=== PATIENT | male | born 1945 | race Caucasian/White ===

== ENCOUNTER → 2020-12-27 01:02 | Outpatient (CLI) | payer MEDICARE, SELFPAY ==
[2020-12-27 19:08] LABS: SARS-CoV-2 RNA PCR Positive
== END ==
PROVIDERS: PCP Internal Medicine; Visit Provider Internal Medicine Critical Care Medicine
DX: Z01.812 Encounter for preprocedural laboratory examination (principal); U07.1 COVID-19
CPT/HCPCS: C9803; U0003; U0005

== ENCOUNTER → 2021-01-17 03:01 | Outpatient (CLI) | payer MEDICARE, SELFPAY ==
[2021-01-17 18:08] LABS: SARS-CoV-2 RNA PCR Negative
== END ==
PROVIDERS: PCP Internal Medicine; Visit Provider Internal Medicine Critical Care Medicine
DX: Z01.812 Encounter for preprocedural laboratory examination (principal); Z20.822 Contact with and (suspected) exposure to COVID-19
CPT/HCPCS: C9803; U0003; U0005

== ENCOUNTER 2021-01-19 09:08 | Outpatient (CLI) | payer MEDICARE, SELFPAY ==
--- NOTE | 2021-02-03 16:26 | WPDSLEEPSTUD ---
Sleep Study Ordering Provider: Javad Willoughby DO Interpreting Physician: Delicia Marquez MD Sleep Study Type: Polysomnogram Height: 1.85 m Weight: 98.883 kg Body Mass Index: 28.8 Neck Circumference (inches): 17 [place]: 3 Reason for Sleep Study Waking up during the night, excessive daytime sleepiness 01/23/2002 CPAP titration with optimal pressure of 12 cm May 1999 with RDI 11.1, snoring and desaturation to 78%, BMI was 32.7 Sleep History Rodríguez Chan is a 75-year-old man who presents for evaluation due to waking during the night and having excessive daytime sleepiness. He rarely snores. Occasionally, his snoring is loud enough that others complain about it. He does not awaken at night with heartburn, belching or coughing. He occasionally awakens from sleep feeling short of breath. He rarely has trouble sleeping with a cold. He occasionally wakes up gasping for breath at night, occasionally has breathing problems at night observed by others. He does not sweat excessively at night or notices his heart pounding or beating irregularly at night. He rarely falls asleep during the day. He does not fall asleep involuntarily or while driving. He rarely has loss of muscle tone with strong emotion. He does not have daytime difficulties due to excessive sleepiness. He is retired. He does not feel paralyzed on waking or falling asleep. He does not have vivid dreamlike scenes upon awakening or falling asleep. He does not feel afraid to go to sleep. He denies having nightmares. He does not remember his dreams. He does not have racing thoughts. He does not feel sad or depressed. He does not have anxiety. He does not have muscular tension. He rarely notices parts of his body jerking. He does not kick at night. He does not have crawling or aching feelings in his legs and does not have any kind of leg pain at night. He does not have morning jaw pain. He does not grind his teeth during sleep. He rarely is bothered by pain during the day. He is not awakened by pain at night. He does not wake up feeling stiff in the morning with sore or achy muscles. He does not wake up with pain in the neck and spine. He has fatigue and sexual problems. Normal bedtime is 10:30-11 p.m., falling asleep within 5 minutes, waking twice during the night. He wakes up in the middle of the night, and watches television. He is able to return to sleep within a 1/2 hour. He wakes in the morning between 4 and 5:00 a.m.. His weekend schedule is the same. He takes naps in the afternoon or evening. A short nap may be refreshing. He is usually drowsy in the morning for 2 hours. He rarely wakes feeling refreshed. Habits: Quit tobacco years ago. No caffeine, alcohol or recreational drugs. [facility] Past Medical History Medical History (Updated 02/03/21 @ 19:47 by Delicia Marquez MD) Diastasis recti Essential hypertension Hemangioma Hypertriglyceridemia Insomnia JASON (obstructive sleep apnea) Type 2 diabetes mellitus without complication, without long-term current use of insulin Surgical History Surgical History (Updated 02/03/21 @ 19:47 by Delicia Marquez MD) History of back surgery x 3 History of repair of hiatal hernia Family History Family History (Updated 07/16/18 @ 13:53 by DOCTOR UNKNOWN) Sibling Family history of malignant neoplasm of breast in first degree relative Family history of lung cancer Mother Patient's mother is Father Patient's father is Other Diabetes mellitus Family history of cardiovascular disease Family history of elevated blood lipids Hypertension Social History Social History Smoking status: Former smoker Smoking end date: 10/28/95 Alcohol intake: current Gender identity (if verbalized by the patient): Male Medications Home Medications Medication Instructions Recorded Confirmed Type repaglinide 0.5 mg tablet 0.5 mg PO BID #180 t
[2021-02-03 20:38] VITALS: BMI 28.8
== END 2021-01-19 09:09 | disposition home or self-care (01) ==
LOC: ANHCSM 09:08
PROVIDERS: PCP Internal Medicine; Visit Provider Internal Medicine
DX: G47.33 Obstructive sleep apnea (adult) (pediatric) (principal)
CPT/HCPCS: 95810

== ENCOUNTER 2021-01-22 11:44 | Emergency (ER) | payer MEDICARE, SELFPAY ==
--- NOTE | ~2021-01-22 | XR_ITS ---
EXAMINATION: XR wrist RT min 3V INDICATION: Right wrist pain TECHNIQUE: Four views of the right wrist are obtained. COMPARISON: None available FINDINGS: There is a triangular heterotopic ossification projecting lateral to the styloid of the rad ius. Cartilaginous calcification is noted. Bone alignment is normal. There is mild soft tissue swelli ng of the wrist. 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 IMPRESSION: 1. Tripolar heterotopic ossification lateral to the styloid of the radius which could reflect avulsio n injury. Recommend correlation for tenderness at this site. Reviewed, dictated and finalized at location A. IMPRESSION: 1. Tripolar heterotopic ossification lateral to the styloid of the radius which could reflect avulsion injury. Recommend correlation for tenderness at this si te.
[2021-01-22 11:45] VITALS: BP 160/67; PULSE 92; RESP 17; TEMP 36.1; O2SAT 100
--- NOTE | 2021-01-22 12:50 | ED.UPPEXIN ---
HPI - Extremity Injury (Upper) General Chief Complaint: Extremity Injury, Upper Stated Complaint: right wrist injury Time Seen by Provider: 01/22/21 12:00 Source: patient Mode of arrival: ambulatory Limitations: no limitations History of Present Illness HPI narrative: This is a 75-year-old male that presents the emergency department for right wrist injury sustained 2 days ago. Reports he was doing laundry. Does not remember certain injury, but felt a pop in his wrist. Reports since he has had pain, especially on the radial side of the wrist. Worse with movement and relieved with rest. Denies decreased range of motion or numbness. Related Data Home Medications Medication Instructions Recorded Confirmed dapagliflozin 10 mg tablet 0.5 mg PO QAM tablet 12/14/19 12/15/20 apple cider vinegar 500 mg tablet 600 mg PO BID tablet 02/15/20 12/15/20 aspirin 81 mg tablet,delayed 81 mg PO DAILY 02/15/20 12/15/20 release cyanocobalamin (vitamin B-12) 1,000 mcg PO DAILY 02/15/20 12/15/20 1,000 mcg capsule multivitamin 1 tablet PO DAILY 02/15/20 12/15/20 insulin glargine 100 unit/mL 20 unit SUB-Q DAILY ml 02/16/20 12/15/20 subcutaneous solution fluticasone propionate 50 2 spray NASAL .prn ml 08/16/20 12/15/20 mcg/actuation nasal spray,suspension magnesium 250 mg tablet 500 mg PO DAILY tablet 08/16/20 12/15/20 semaglutide 0.5 mg SUB-Q WEEKLY ml 08/16/20 12/15/20 glipizide 10 mg tablet 10 mg PO DAILY tablet 12/15/20 12/15/20 Allergies Allergy/AdvReac Type Severity Reaction Status Date / Time pentazocine Allergy Unknown Hives Verified 08/16/20 07:28 Review of Systems Review of Systems: Narrative: CONSTITUTIONAL: Denies fever MUSCULOSKELETAL: Reports joint pain, and myalgia. NEUROLOGIC: Denies numbness, or weakness. All systems reviewed & are unremarkable except as noted in HPI and below PMFSH Past Medical History Medical History (Updated 01/22/21 @ 13:19 by Araseli Jimenez PA-C) Diastasis recti Essential hypertension Hemangioma Hypertriglyceridemia Insomnia Type 2 diabetes mellitus without complication, without long-term current use of insulin Surgical History Surgical History (Updated 08/16/20 @ 07:24 by Natividad Faith) History of repair of hiatal hernia Family History Family History (Updated 07/16/18 @ 13:53 by DOCTOR UNKNOWN) Sibling Family history of malignant neoplasm of breast in first degree relative Family history of lung cancer Mother Patient's mother is Father Patient's father is Other Diabetes mellitus Family history of cardiovascular disease Family history of elevated blood lipids Hypertension Social History Social History Smoking status: Former smoker Smoking end date: 10/28/95 Alcohol intake: current Gender identity (if verbalized by the patient): Male Exam Narrative: Exam Narrative: GENERAL: Well-appearing, well-nourished, and in no acute distress. HEAD: Normocephalic, atraumatic. EYES: EOMI. EXTREMITIES: Normal range of motion. No edema or obvious deformity. Pain with palpation of the radial side of the wrist. Normal radial pulses. Normal sensation SKIN: Warm, dry, no rash. NEURO: No focal deficits. Alert and oriented x3. PSYCH: Normal mood and affect Course Vital Signs Vital signs: Vital Signs Temperature 97 F L 01/22/21 11:45 Pulse Rate 92 01/22/21 11:45 Respiratory Rate 17 01/22/21 11:45 Blood Pressure 160/67 H 01/22/21 11:45 Pulse Oximetry 100 01/22/21 11:45 Temperature 97 F L 01/22/21 11:45 Pulse Rate 92 01/22/21 11:45 Respiratory Rate 17 01/22/21 11:45 Blood Pressure 160/67 H 01/22/21 11:45 Pulse Oximetry 100 01/22/21 11:45 Procedures Orthopedic Splinting/Casting Injury #1: Splinting/Casting Date: 01/22/21 Splinting/Casting Time: 13:17 Side: right Upper Extremity Injury Location: wrist Upper Extremity Immobilizer:
--- NOTE | 2021-01-22 12:53 | PC.NURSE ---
Educated patient on OCL and care, including checking for good PMS in fingers. He and his have no questions after splint placement.
== END 2021-01-22 13:24 | disposition home or self-care (01) ==
PROVIDERS: Emergency Provider Emergency Medicine; PCP Internal Medicine
DX: S52.501A Unspecified fracture of the lower end of right radius, initial encounter for closed fracture (principal); E11.9 Type 2 diabetes mellitus without complications; I10 Essential (primary) hypertension; E78.1 Pure hyperglyceridemia; M62.08 Separation of muscle (nontraumatic), other site; Z87.891 Personal history of nicotine dependence; Z79.4 Long term (current) use of insulin; Z79.82 Long term (current) use of aspirin; X50.9XXA Other and unspecified overexertion or strenuous movements or postures, initial encounter
CPT/HCPCS: 29125; 73110; 99284

== ENCOUNTER → 2021-12-07 07:08 | Outpatient (CLI) | payer MEDICARE, SELFPAY ==
[2021-12-07 13:01] LABS: SARS-CoV-2 RNA PCR Negative
== END ==
PROVIDERS: PCP Internal Medicine; Visit Provider Internal Medicine
DX: R05.9 Cough, unspecified (principal); Z20.822 Contact with and (suspected) exposure to COVID-19
CPT/HCPCS: C9803; U0003; U0005

== ENCOUNTER 2022-05-10 08:34 | Outpatient (CLI) | payer MEDICARE, SELFPAY ==
[2022-05-10 16:34] LABS: Basophils Absolute Auto 0.1 K/mm3 (0.0-0.1); Eosinophils Absolute Auto 0.3 K/mm3 (0-0.3); Eosinophils Percent Auto 2.5 % (0-4.4); Hematocrit 37.2 % (42.0-52.0); Hemoglobin 11.3 g/dL (14.0-18.0); Immature Granulocyte Absolute 0.03 K/mm3 (0.00-0.031); Immature Granulocyte Percent A 0.3 % (0-0.5); Immature Platelet Fraction Pct 9.6 % (0.9-11.2); Lymphocytes Absolute Auto 2.41 K/mm3 (0.9-3.2); Lymphocytes Percent Auto 21.9 % (18.3-44.2); Mean Corpuscular HGB Conc 30.4 g/dl (32-36); Mean Corpuscular Hemoglobin 23.3 pg (26-34); Mean Corpuscular Volume 76.9 fl (80-100); Mean Platelet Volume 12.6 fl (7.4-10.4); Monocytes Absolute Auto 0.9 K/mm3 (0.1-0.6); Monocytes Percent Auto 8.3 % (2.6-8.5); Neutrophils Absolute Auto 7.3 K/mm3 (1.3-6.7); Platelet Count Result 266 k/mm3 (150-375); Red Blood Count 4.84 M/mm3 (4.6-6.20); Red Cell Distribution Width 17.7 % (11.5-14.5)
[2022-05-10 16:41] LABS: Erythrocyte Sedimentation Rate 35 mm/hr (0-20)
== END 2022-05-10 08:35 | disposition home or self-care (01) ==
LOC: ANHGOSHLAB 08:36
PROVIDERS: PCP Internal Medicine; Visit Provider Internal Medicine
DX: R10.32 Left lower quadrant pain (principal)
CPT/HCPCS: 36415; 85025; 85055; 85652

== ENCOUNTER 2022-05-11 13:47 | Outpatient (CLI) | payer MEDICARE, SELFPAY ==
--- NOTE | ~2022-05-11 | CT_ITS ---
EXAMINATION: CT abdomen pelvis w con DATE: 05/11/2022 14:16 INDICATION: Left lower quadrant abdominal pain. Leukocytosis. TECHNIQUE: Computed tomography (CT) of the abdomen and pelvis was performed with 100 mL Omnipaque-300 intravenous contrast. Automated exposure control and iterative reconstruction technique were employe d. The dose-length product was 698.04 mGy-cm. COMPARISON: None FINDINGS: Mild discoid atelectasis at the lingula. Heart size is normal. No pericardial or pleural effusion. At herosclerotic coronary artery calcifications. A couple small hepatic and splenic calcifications consi stent with old granulomatous disease. Gallbladder, pancreas, bilateral adrenal glands and right kidne y are normal. A few small left renal cysts the largest measuring 1.5 cm. Small bowel and appendix are normal. Moderate diverticulosis along the descending and sigmoid colon. Focal mild wall thickening a s well as inflammatory stranding surrounding a diverticulum along the descending colon consistent wit h acute diverticulitis. Bladder is normal. Postoperative change of prior left inguinal hernia repair. No abscess or free intraperitoneal gas or fluid. No pathologically enlarged abdominal or pelvic lymp hadenopathy. Moderate lower lumbar spondylosis. IMPRESSION: 1. Radiographically uncomplicated diverticulitis. Reviewed, dictated and finalized at location B.
[2022-05-11 14:13] LABS: Estimated Glomerular Filt Rate > 60
== END 2022-05-11 13:48 | disposition home or self-care (01) ==
PROVIDERS: PCP Internal Medicine; Visit Provider Internal Medicine
DX: K57.32 Diverticulitis of large intestine without perforation or abscess without bleeding (principal)
CPT/HCPCS: 74177; Q9967

== ENCOUNTER 2022-05-18 09:46 | Emergency (ER) | payer MEDICARE, SELFPAY ==
[2022-05-18] VITALS (20 sets, daily range): BP systolic 72–126; BP diastolic 48–88; PULSE 66–81; RESP 16–17; TEMP 36.6; O2SAT 94–100
--- NOTE | ~2022-05-18 | CT_ITS ---
EXAMINATION: CT abdomen pelvis w con DATE: 05/18/2022 12:13 INDICATION: Abdominal pain. Recent episode of diverticulitis. TECHNIQUE: Computed tomography (CT) of the abdomen and pelvis was performed with 100 CC Omnipaque 300 intravenous contrast. Automated exposure control and iterative reconstruction technique were employe d. Exam dose: 684.98 mGy-cm total exam DLP. COMPARISON: 05/11/2022 CT abdomen pelvis FINDINGS: There is minimal atelectasis at the lung bases. Normal heart size. No pericardial or pleura l effusion. The gallbladder is distended. No gallbladder wall thickening or pericholecystic fluid or fat strandin g. No bile duct or pancreatic duct dilatation. No hepatic, splenic, pancreatic or adrenal space-occupying mass lesion. There are several left renal cysts, the largest approximately 1.6 cm. No urinary tract calculus or hydroureteronephrosis. The urinary bladder wall appears prominent but may be due to Complete evacuation of the urinary bladder. Mild to moderate prostate enlargement. Calcification of the abdominal aorta; there is calcification of the origins of the renal arteries. No abdominal aortic aneurysm. Calcification of the iliac and femoral arteries. No intraperitoneal or re troperitoneal or pelvic mass lesion or adenopathy or ascites is noted. Small fat-containing left inguinal hernia. There are fluid levels of the colon. Diverticulosis of the left colon. Resolution of the pericolic in flammatory changes at the lower descending colon since 05/11/2022.. IMPRESSION: Resolution of lower descending colon diverticulitis since 05/11/2022 There are fluid levels throughout the colon; no bowel obstruction Reviewed, dictated and finalized at Location [facility]. Reviewed, dictated and finalized at location B. IMPRESSION: Resolution of lower descending colon diverticulitis since 2 There are fluid levels throughout the colon; no bowel obstruction
--- NOTE | 2022-05-18 10:05 | ED.ABDPAIN ---
HPI - Abdominal Pain General Chief Complaint: Abdominal Pain Stated Complaint: known diverticulitis, left side pain Time Seen by Provider: 05/18/22 09:59 Source: patient Mode of arrival: ambulatory Limitations: no limitations History of Present Illness HPI narrative: This is a 77-year-old male that presents to the emergency department for left lower quadrant abdominal pain. Ongoing over the last week and a half. He was evaluated by his primary doctor and had an outpatient CT scan. This showed acute diverticulitis. He was started on ciprofloxacin and Flagyl. He has been taking these medications as prescribed for the last week. He has had some improvement in his pain, although pain is still present. He is also still having several episodes of diarrhea daily. Denies fever, vomiting, or hematochezia. Related Data Home Medications Medication Instructions Recorded Confirmed apple cider vinegar 500 mg tablet 600 mg PO BID 02/15/20 05/10/22 aspirin 81 mg tablet,delayed 81 mg PO DAILY 02/15/20 05/10/22 release (Adult Low Dose Aspirin) multivitamin (Daily Multi-Vitamin 1 tablet PO DAILY 02/15/20 05/10/22 tablet) insulin glargine 100 unit/mL 20 unit subcut DAILY 02/16/20 05/10/22 subcutaneous solution (Lantus U-100 Insulin) magnesium 250 mg tablet 500 mg PO DAILY 08/16/20 05/10/22 semaglutide 0.25 mg or 0.5 mg (2 0.5 mg subcut WEEKLY 08/16/20 05/10/22 mg/1.5 mL) subcutaneous pen injector (Ozempic) glipizide 10 mg tablet 10 mg PO DAILY 12/15/20 05/10/22 lysine 500 mg tablet (L-Lysine) 500 mg PO BID PRN 11/21/21 05/10/22 dapagliflozin 10 mg tablet 10 mg PO QAM 02/13/22 05/10/22 (Farxiga) metformin 1,000 mg tablet 1,000 mg PO BID 02/13/22 05/10/22 insulin degludec 200 unit/mL (3 20 unit subcut DAILY 05/18/22 mL) subcutaneous pen (Tresiba FlexTouch U-200 insulin) Allergies Allergy/AdvReac Type Severity Reaction Status Date / Time pentazocine Allergy Unknown Hives Verified 05/18/22 10:57 Review of Systems Review of Systems: CONSTITUTIONAL: Denies fever GASTROINTESTINAL: Reports abdominal pain and diarrhea. Denies nausea, vomiting GENITOURINARY: Denies dysuria All systems reviewed & are unremarkable except as noted in HPI and below PMFSH Past Medical History Medical History Chronic kidney disease due to diabetes mellitus Diabetes mellitus with insulin therapy Diastasis recti Essential hypertension Hemangioma Hypertriglyceridemia Insomnia JASON (obstructive sleep apnea) Type 2 diabetes mellitus without complication, without long-term current use of insulin Wrist fracture Surgical History Surgical History History of back surgery x 3 History of repair of hiatal hernia Family History Family History Sibling Family history of malignant neoplasm of breast in first degree relative Family history of lung cancer Mother Patient's mother is Father Patient's father is Other Diabetes mellitus Family history of cardiovascular disease Family history of elevated blood lipids Hypertension Social History Social History Smoking status: Former smoker Smoking end date: 10/28/95 Alcohol intake: current Gender identity (if verbalized by the patient): Male Exam Narrative: GENERAL: Well-appearing, well-nourished, and in no acute distress. HEAD: Normocephalic, atraumatic. EYES: EOMI. CHEST: Clear to auscultation. No respiratory distress. No wheezes rales or rhonchi HEART: Regular rate and rhythm. No murmur heard. Normal peripheral pulses. ABDOMEN: Soft, nondistended, normal active bowel sounds. Tender to palpation in the left lower quadrant, without guarding EXTREMITIES: Normal range of motion. No edema. SKIN: Warm, dry, no rash. N
[2022-05-18] MEDS: SODIUM CHLORIDE 0.9% IV 500 ML 999 ML IV CONT (10:58)
[2022-05-18 11:07] LABS: Basophils Absolute Auto 0.1 K/mm3 (0.0-0.1); Basophils Percent Auto 0.6 % (0.2-1.2); Eosinophils Absolute Auto 0.2 K/mm3 (0-0.3); Eosinophils Percent Auto 2.2 % (0-4.4); Hemoglobin 10.6 g/dL (14.0-18.0); Immature Granulocyte Absolute 0.05 K/mm3 (0.00-0.031); Immature Granulocyte Percent A 0.5 % (0-0.5); Lymphocytes Absolute Auto 2.18 K/mm3 (0.9-3.2); Lymphocytes Percent Auto 19.7 % (18.3-44.2); Mean Corpuscular HGB Conc 31.2 g/dl (32-36); Mean Corpuscular Hemoglobin 23.1 pg (26-34); Mean Corpuscular Volume 74.1 fl (80-100); Mean Platelet Volume 11.3 fl (7.4-10.4); Monocytes Absolute Auto 0.9 K/mm3 (0.1-0.6); Monocytes Percent Auto 8.1 % (2.6-8.5); Neutrophils Absolute Auto 7.6 K/mm3 (1.3-6.7); Neutrophils Percent Auto 68.9 % (45.5-73.1); Platelet Count Result 307 k/mm3 (150-375); Red Blood Count 4.59 M/mm3 (4.6-6.20); Red Cell Distribution Width 17.2 % (11.5-14.5); White Blood Count 11.1 K/mm3 (4.5-10.0)
[2022-05-18 11:23] LABS: Alanine Aminotransferase 27 U/L (6-50); Alkaline Phosphatase 74 U/L (38-126); Anion Gap 11 mmol/L (8-16); Aspartate Amino Transferase 35 U/L (17-59); Bilirubin,Total 0.4 mg/dL (0.2-1.3); Blood Urea Nitrogen 18 mg/dL (9-20); Calcium 9.2 mg/dL (8.4-10.2); Carbon Dioxide 19 mmol/L (22-30); Chloride 104 mmol/L (98-107); Estimated CRCL calculation 40 ml/min; Estimated Glomerular Filt Rate 45; Glucose 91 mg/dL (65-110); Lactic Acid Reflex 2.7 mmol/L (0.7-2.0); Lipase 311 U/L (23-300); Potassium 3.4 mmol/L (3.4-5.0); Sodium 134 mmol/L (137-145)
[2022-05-18] MEDS: SODIUM CHLORIDE 0.9% IV 1,000 ML 999 ML IV CONT (11:49)
--- NOTE | 2022-05-18 11:51 | PC.NURSE ---
pt unable to provide urine sample at this time. pt declining straight cath.
[2022-05-18 12:24] LABS: Appearance Urine Clear (Clear); Bilirubin Urine 1+ (Negative); Blood Urine Negative (Negative); Color Urine Yellow (Yellow); Glucose Urine UA 3+ mg/dL (Negative); Ketones Urine Trace mg/dL (Negative); Leukocyte Esterase Ur Trace LEU/UL (Negative); Nitrate Urine Negative (Negative); Protein Urine Negative (Negative); Specific Grav Ur >= 1.030 (1.001-1.035); Urobilinogen Urine 0.2 mg/dL (<2.0)
[2022-05-18 12:37] LABS: Mucus Urine Rare /lpf; RBC Urine 0-2 /hpf (0-2); Squamous Epithelial Cell Urine Rare /hpf (Few); WBC Urine 0-3 /hpf
[2022-05-18 12:39] LABS: SARS-CoV-2 RNA PCR Negative
[2022-05-18 12:48] LABS: Add Urine Microscopic? YES
[2022-05-18 13:53] LABS: Lactic Acid Reflex 2.5 mmol/L (0.7-2.0)
[2022-05-18 14:05] LABS: Reflex Lactic Acid Yes or No Add Lactic
== END 2022-05-18 14:35 | disposition home or self-care (01) ==
PROVIDERS: Physician Assistant; Emergency Provider General Practice; PCP Internal Medicine
DX: R10.32 Left lower quadrant pain (principal); K57.32 Diverticulitis of large intestine without perforation or abscess without bleeding; Z20.822 Contact with and (suspected) exposure to COVID-19; E11.22 Type 2 diabetes mellitus with diabetic chronic kidney disease; N18.9 Chronic kidney disease, unspecified; I12.9 Hypertensive chronic kidney disease with stage 1 through stage 4 chronic kidney disease, or unspecified chronic kidney disease; E78.1 Pure hyperglyceridemia; G47.33 Obstructive sleep apnea (adult) (pediatric); Z87.891 Personal history of nicotine dependence; Z79.4 Long term (current) use of insulin; Z79.84 Long term (current) use of oral hypoglycemic drugs; Z79.82 Long term (current) use of aspirin
CPT/HCPCS: 36415; 74177; 80053; 81001; 83605; 83690; 85025; 96361; 96365; 99284; C9803; J0131; J7030; J7040; Q9967; U0003; U0005

== ENCOUNTER 2022-06-21 07:12 | Outpatient (CLI) | payer MEDICARE, SELFPAY ==
[2022-06-21 08:17] LABS: Appearance Urine Clear (Clear); Bilirubin Urine Negative (Negative); Blood Urine Negative (Negative); Color Urine Yellow (Yellow); Glucose Urine UA 3+ mg/dL (Negative); Ketones Urine Negative (Negative); Leukocyte Esterase Ur Negative LEU/UL (NEGATIVE); Nitrate Urine Negative (Negative); Protein Urine Negative (Negative); Urobilinogen Urine 0.2 mg/dL (<2.0); pH Urine 5.5 (5.0-9.0)
[2022-06-21 08:28] LABS: RBC Urine 0-2 /hpf (0-2); Squamous Epithelial Cell Urine Rare /hpf (Few); WBC Urine 0-3 /hpf (0-3)
[2022-06-21 08:34] LABS: Add Urine Microscopic? YES
[2022-06-21 09:01] LABS: Basophils Absolute Auto 0.1 K/mm3 (0.0-0.1); Basophils Percent Auto 1.3 % (0.2-1.2); Eosinophils Absolute Auto 0.3 K/mm3 (0-0.3); Eosinophils Percent Auto 3.5 % (0-4.4); Hematocrit 38.2 % (42.0-52.0); Hemoglobin 11.8 g/dL (14.0-18.0); Immature Granulocyte Absolute 0.03 K/mm3 (0.00-0.031); Immature Granulocyte Percent A 0.4 % (0-0.5); Immature Platelet Fraction Pct 7.3 % (0.9-11.2); Lymphocytes Absolute Auto 2.85 K/mm3 (0.9-3.2); Lymphocytes Percent Auto 33.7 % (18.3-44.2); Mean Corpuscular HGB Conc 30.9 g/dl (32-36); Mean Corpuscular Hemoglobin 23.1 pg (26-34); Mean Corpuscular Volume 74.9 fl (80-100); Mean Platelet Volume 12.1 fl (7.4-10.4); Monocytes Absolute Auto 0.7 K/mm3 (0.1-0.6); Monocytes Percent Auto 8.7 % (2.6-8.5); Neutrophils Absolute Auto 4.4 K/mm3 (1.3-6.7); Neutrophils Percent Auto 52.4 % (45.5-73.1); Platelet Count Result 275 k/mm3 (150-375); Red Cell Distribution Width 17.6 % (11.5-14.5); White Blood Count 8.5 K/mm3 (4.5-10.0)
[2022-06-21 10:09] LABS: Iron 59 ug/dL (49-181)
[2022-06-21 10:25] LABS: Percent Iron Saturation 15 % (20-50)
[2022-06-21 10:33] LABS: Anisocytosis 1+ (NORMAL); Burr Cells 1+ (NORMAL); Ovalocytes 1+ (NORMAL); Platelet Estimate Adequate (Adequate)
== END 2022-06-21 07:13 | disposition home or self-care (01) ==
PROVIDERS: Nurse Practitioner; PCP Internal Medicine; Visit Provider Internal Medicine
DX: R10.32 Left lower quadrant pain (principal); D64.9 Anemia, unspecified
CPT/HCPCS: 36415; 81001; 82728; 83540; 83550; 85025; 85055

== ENCOUNTER 2022-07-04 01:10 | Day surgery (SDC) | payer MEDICARE, SELFPAY ==
[2022-06-27 11:08] VITALS: BMI 28.4
--- NOTE | 2022-07-03 16:25 | PM.HPGS ---
History of Present Illness History of Present Illness Consent: Risks, benefits, and alternatives have been discussed and questions answered. Patient agrees to proceed with procedure. Chief complaint: neoplasm screening Narrative: Rodríguez Chan is a 77 year old male referred for colon cancer screening. He has a history of having had polyps in the past. Several years ago he had bleeding duodenal and gastric ulcers. Review of Systems Review of Systems: All systems reviewed & are unremarkable except as noted in HPI and below PMFSH Past Medical History Medical History Chronic kidney disease due to diabetes mellitus Diabetes mellitus with insulin therapy Diastasis recti Essential hypertension Hemangioma Hypertriglyceridemia Insomnia JASON (obstructive sleep apnea) Type 2 diabetes mellitus without complication, without long-term current use of insulin Wrist fracture Surgical History Surgical History History of back surgery x 3 History of repair of hiatal hernia Family History Family History Sibling Family history of malignant neoplasm of breast in first degree relative Family history of lung cancer Mother Patient's mother is Father Patient's father is Other Diabetes mellitus Family history of cardiovascular disease Family history of elevated blood lipids Hypertension Social History Social History Smoking packs per day: 2 Smoking cigarettes per day: 40.0 Years smoked: 7 Smoking pack-years: 14.00 Smoking status: Former smoker Tobacco type: cigarettes Smoking end date: 10/28/95 Alcohol intake: current Living arrangements: with family Gender identity (if verbalized by the patient): Male Spiritual care concerns: No Meds Home Medications and Allergies Home Medications Medication Instructions Recorded Confirmed Type apple cider vinegar 500 mg tablet 600 mg PO BID 02/15/20 06/27/22 History aspirin 81 mg tablet,delayed 81 mg PO DAILY 02/15/20 06/27/22 History release (Adult Low Dose Aspirin) multivitamin (Daily Multi-Vitamin 1 tablet PO DAILY 02/15/20 06/27/22 History tablet) semaglutide 0.25 mg or 0.5 mg (2 0.5 mg subcut WEEKLY 08/16/20 06/27/22 History mg/1.5 mL) subcutaneous pen injector (OzempVoicebase) lysine 500 mg tablet (L-Lysine) 500 mg PO BID 11/21/21 06/27/22 History amitriptyline 25 mg tablet 25 mg PO DAILY #90 tabs 01/31/22 06/27/22 Rx atorvastatin 20 mg tablet 20 mg PO DAILY #90 tabs 01/31/22 06/27/22 Rx lisinopril 20 1 tablet PO DAILY #90 tabs 01/31/22 06/27/22 Rx mg-hydrochlorothiazide 12.5 mg tablet amlodipine 10 mg tablet 10 mg PO DAILY #90 tabs 02/01/22 06/27/22 Rx dapagliflozin 10 mg tablet 10 mg PO QAM 02/13/22 06/27/22 History (Jessica) metformin 1,000 mg tablet 1,000 mg PO BID 02/13/22 06/27/22 History Allergies Allergy/AdvReac Type Severity Reaction Status Date / Time pentazocine Allergy Unknown Hives Verified 07/04/22 07:46 Exam Resp: Auscultation: clear to auscultation bilaterally Cardio: Rate: regular rate Rhythm: regular rhythm GI: GI Palp: Yes Soft to palpation and No Tenderness to palpation present (GI) Assessment and Plan Assessment and plan (1) Screening for colon cancer: Code(s): Z12.11 - Encounter for screening for malignant neoplasm of colon Status: Acute Assessment and Plan: Colonoscopy with possible biopsy or polypectomy or cautery or injection of substances.
[2022-07-04 07:47] VITALS: BP 139/65; PULSE 81; RESP 18; TEMP 36.1; O2SAT 98; BMI 26.6
[2022-07-04] MEDS: LACTATED RINGERS 1,000 ML 150 ML IV CONT (08:04)
[2022-07-04 08:09] LABS: Glucose Point of Care 187 mg/dl (65-105)
--- NOTE | 2022-07-04 08:45 | WPDANESEPPF ---
Anes - Initial Pre Proc Eval Procedure: Operation Date: 07/04/22 09:00 Proposed Procedures p Screening Colonoscopy - William Garza MD Date/Time: 07/04/22 08:45 Surgeon: William Garza MD Pre Op Diagnosis: neoplasm screening Patient Data Age: 77 Gender: M Height: 1.83 m Weight: 89.1 kg Last Vital Signs Temp 97 F L 07/04/22 07:47 Pulse 81 07/04/22 07:47 Resp 18 07/04/22 07:47 BP 139/65 07/04/22 07:47 Pulse Ox 98 07/04/22 07:47 O2 Del Method Room Air 07/04/22 07:47 Allergies Allergy/AdvReac Type Severity Reaction Status Date / Time pentazocine Allergy Unknown Hives Verified 07/04/22 07:46 Home Medications Medication Instructions Recorded Confirmed Type apple cider vinegar 500 mg tablet 600 mg PO BID 02/15/20 06/27/22 History aspirin 81 mg tablet,delayed 81 mg PO DAILY 02/15/20 06/27/22 History release (Adult Low Dose Aspirin) multivitamin (Daily Multi-Vitamin 1 tablet PO DAILY 02/15/20 06/27/22 History tablet) semaglutide 0.25 mg or 0.5 mg (2 0.5 mg subcut WEEKLY 08/16/20 06/27/22 History mg/1.5 mL) subcutaneous pen injector (Ozempic) lysine 500 mg tablet (L-Lysine) 500 mg PO BID 11/21/21 06/27/22 History amitriptyline 25 mg tablet 25 mg PO DAILY #90 tabs 01/31/22 06/27/22 Rx atorvastatin 20 mg tablet 20 mg PO DAILY #90 tabs 01/31/22 06/27/22 Rx lisinopril 20 1 tablet PO DAILY #90 tabs 01/31/22 06/27/22 Rx mg-hydrochlorothiazide 12.5 mg tablet amlodipine 10 mg tablet 10 mg PO DAILY #90 tabs 02/01/22 06/27/22 Rx dapagliflozin 10 mg tablet 10 mg PO QAM 02/13/22 06/27/22 History (Farxiga) metformin 1,000 mg tablet 1,000 mg PO BID 02/13/22 06/27/22 History Laboratory Tests 07/04/22 08:03 POC Capillary Glucose 187 mg/dl H mg/dl (65-105) Patient hx anesthesia problems: none Family hx anesthesia problems: none Results Review: All pre-operative results and documents have been reviewed as part of the pre-operative evaluation. [facility] Past Medical History Medical History (Reviewed 05/18/22 @ 08:33 by Zoe Ventura [facility]) Chronic kidney disease due to diabetes mellitus Diabetes mellitus with insulin therapy Diastasis recti Essential hypertension Hemangioma Hypertriglyceridemia Insomnia JASON (obstructive sleep apnea) Type 2 diabetes mellitus without complication, without long-term current use of insulin Wrist fracture Surgical History Surgical History (Reviewed 05/23/22 @ 10:16 by Mine Quezada [facility]) History of back surgery x 3 History of repair of hiatal hernia Family History Family History (Reviewed 05/23/22 @ 10:16 by Mine Quezada [facility]) Sibling Family history of malignant neoplasm of breast in first degree relative Family history of lung cancer Mother Patient's mother is Father Patient's father is Other Diabetes mellitus Family history of cardiovascular disease Family history of elevated blood lipids Hypertension Social History Social History (Reviewed 05/23/22 @ 10:16 by Mine Quezada [facility]) Smoking packs per day: 2 Smoking cigarettes per day: 40.0 Years smoked: 7 Smoking pack-years: 14.00 Smoking status: Former smoker Tobacco type: cigarettes Smoking end date: 10/28/95 Alcohol intake: current Living arrangements: with family Gender identity (if verbalized by the patient): Male Spiritual care concerns: No Anes - Eval Final PreProcedure Day of Procedure 07/04/22 08:45 Patient weight: normal Heart: regular rate and rhythm Lungs: clear to auscultation Airway: Mallampati scale class II Neurological: alert and oriented Last oral intake: >/= 8 hours ASA classification: III Emergent: no Anesthetic plan: proceed Anesthesia type and monitoring: general GIVS and standard monitoring Results Review: All pre-operative results and documents have been reviewed as part of the pre-operative evaluation. Informed Consent: The patie
[2022-07-04 09:23] VITALS: BP 92/49; PULSE 56; RESP 14; O2SAT 98
[2022-07-04 09:33] VITALS: BP 94/52; PULSE 58; RESP 14; O2SAT 98
[2022-07-04 09:43] VITALS: BP 114/62; PULSE 62; RESP 14; O2SAT 98
== END 2022-07-04 09:56 | disposition home or self-care (01) ==
PROVIDERS: PCP Internal Medicine; Visit Provider Internal Medicine Gastroenterology
PROC: 0DJD8ZZ Inspection of Lower Intestinal Tract, Via Natural or Artificial Opening Endoscopic (ICD-10-PCS; CPT 45378; principal; 2022-07-04 09:00)
DX: Z12.11 Encounter for screening for malignant neoplasm of colon (principal); K63.5 Polyp of colon; K57.30 Diverticulosis of large intestine without perforation or abscess without bleeding; I12.9 Hypertensive chronic kidney disease with stage 1 through stage 4 chronic kidney disease, or unspecified chronic kidney disease; E11.22 Type 2 diabetes mellitus with diabetic chronic kidney disease; N18.9 Chronic kidney disease, unspecified; E78.1 Pure hyperglyceridemia; G47.33 Obstructive sleep apnea (adult) (pediatric); G47.00 Insomnia, unspecified; Z87.891 Personal history of nicotine dependence; Z79.4 Long term (current) use of insulin
CPT/HCPCS: 45380; 82948; 88305; J2704; J7120

== ENCOUNTER 2022-08-31 08:34 | Outpatient (CLI) | payer MEDICARE, SELFPAY ==
[2022-08-31 19:33] LABS: Anion Gap 13 mmol/L (8-16); Blood Urea Nitrogen 23 mg/dL (9-20); Calcium 9.1 mg/dL (8.4-10.2); Carbon Dioxide 20 mmol/L (22-30); Chloride 105 mmol/L (98-107); Estimated Glomerular Filt Rate > 60; Glucose 137 mg/dL (65-110); Potassium 3.7 mmol/L (3.4-5.0); Sodium 138 mmol/L (137-145)
== END 2022-08-31 08:35 | disposition home or self-care (01) ==
LOC: ANHGOSHLAB 08:37
PROVIDERS: PCP Internal Medicine; Visit Provider Internal Medicine
DX: E11.22 Type 2 diabetes mellitus with diabetic chronic kidney disease (principal)
CPT/HCPCS: 36415; 80048

== ENCOUNTER 2022-11-30 08:42 | Outpatient (CLI) | payer MEDICARE, SELFPAY ==
[2022-11-30 19:24] LABS: Basophils Absolute Auto 0.1 K/mm3 (0.0-0.1); Basophils Percent Auto 1.1 % (0.2-1.2); Eosinophils Absolute Auto 0.2 K/mm3 (0-0.3); Eosinophils Percent Auto 2.1 % (0-4.4); Hematocrit 37.2 % (42.0-52.0); Hemoglobin 11.4 g/dL (14.0-18.0); Immature Granulocyte Absolute 0.03 K/mm3 (0.00-0.031); Immature Granulocyte Percent A 0.3 % (0-0.5); Lymphocytes Absolute Auto 3.35 K/mm3 (0.9-3.2); Lymphocytes Percent Auto 28.7 % (18.3-44.2); Mean Corpuscular HGB Conc 30.6 g/dl (32-36); Mean Platelet Volume 11.6 fl (7.4-10.4); Monocytes Absolute Auto 0.8 K/mm3 (0.1-0.6); Monocytes Percent Auto 7.2 % (2.6-8.5); Neutrophils Absolute Auto 7.1 K/mm3 (1.3-6.7); Neutrophils Percent Auto 60.6 % (45.5-73.1); Platelet Count Result 288 k/mm3 (150-375); Red Blood Count 4.96 M/mm3 (4.6-6.20); Red Cell Distribution Width 16.3 % (11.5-14.5); White Blood Count 11.7 K/mm3 (4.5-10.0)
[2022-11-30 19:36] LABS: Hemoglobin A1C 7.5 % (<5.7)
[2022-11-30 19:45] LABS: Creatinine Urine 28.2 mg/dL
[2022-11-30 19:47] LABS: Alanine Aminotransferase 29 U/L (6-50); Albumin Level 4.5 g/dL (3.5-5.1); Alkaline Phosphatase 99 U/L (38-126); Anion Gap 8 mmol/L (8-16); Aspartate Amino Transferase 35 U/L (17-59); Bilirubin,Total 0.8 mg/dL (0.2-1.3); Blood Urea Nitrogen 18 mg/dL (9-20); Calcium 9.6 mg/dL (8.4-10.2); Carbon Dioxide 28 mmol/L (22-30); Chloride 100 mmol/L (98-107); Cholesterol 104 mg/dL (0-200); Estimated Glomerular Filt Rate > 60; Glucose 92 mg/dL (65-110); HDL Direct 28 mg/dL; Potassium 4.2 mmol/L (3.4-5.0); Sodium 136 mmol/L (137-145); Triglycerides 114 mg/dL (<150)
[2022-11-30 19:59] LABS: LDL Cholesterol Direct 48 mg/dL
[2022-11-30 20:13] LABS: Microalbumin Urine Random < 6.0 mg/L (0-16.7)
[2022-11-30 20:29] LABS: Ferritin 7.31 ng/mL (11.1-264)
== END 2022-11-30 08:43 | disposition home or self-care (01) ==
LOC: ANHGOSHLAB 08:44
PROVIDERS: PCP Internal Medicine; Visit Provider Internal Medicine
DX: D64.9 Anemia, unspecified (principal); E11.9 Type 2 diabetes mellitus without complications; Z79.4 Long term (current) use of insulin
CPT/HCPCS: 36415; 80053; 80061; 82043; 82728; 83036; 85025

== ENCOUNTER 2023-02-27 08:18 | Outpatient (CLI) | payer MEDICARE, SELFPAY ==
[2023-02-27 15:12] LABS: Basophils Absolute Auto 0.1 K/mm3 (0.0-0.1); Basophils Percent Auto 1.4 % (0.2-1.2); Eosinophils Absolute Auto 0.3 K/mm3 (0-0.3); Eosinophils Percent Auto 3.3 % (0-4.4); Hematocrit 40.7 % (42.0-52.0); Hemoglobin 12.7 g/dL (14.0-18.0); Immature Granulocyte Absolute 0.01 K/mm3 (0.00-0.031); Immature Granulocyte Percent A 0.1 % (0-0.5); Lymphocytes Absolute Auto 2.46 K/mm3 (0.9-3.2); Lymphocytes Percent Auto 30.3 % (18.3-44.2); Mean Corpuscular HGB Conc 31.2 g/dl (32-36); Mean Corpuscular Hemoglobin 24.9 pg (26-34); Mean Corpuscular Volume 79.8 fl (80-100); Mean Platelet Volume 12.4 fl (7.4-10.4); Monocytes Absolute Auto 0.7 K/mm3 (0.1-0.6); Neutrophils Absolute Auto 4.5 K/mm3 (1.3-6.7); Neutrophils Percent Auto 55.9 % (45.5-73.1); Platelet Count Result 254 k/mm3 (150-375); Red Cell Distribution Width 18.9 % (11.5-14.5); White Blood Count 8.1 K/mm3 (4.5-10.0)
[2023-02-27 15:19] LABS: Anion Gap 11 mmol/L (8-16); Blood Urea Nitrogen 19 mg/dL (9-20); Calcium 9.2 mg/dL (8.4-10.2); Carbon Dioxide 28 mmol/L (22-30); Chloride 99 mmol/L (98-107); Estimated Glomerular Filt Rate > 60; Glucose 177 mg/dL (65-110); Sodium 138 mmol/L (137-145)
== END 2023-02-27 08:19 | disposition home or self-care (01) ==
PROVIDERS: PCP Internal Medicine; Visit Provider Internal Medicine
DX: D64.9 Anemia, unspecified (principal); I10 Essential (primary) hypertension; E11.9 Type 2 diabetes mellitus without complications
CPT/HCPCS: 36415; 80048; 82728; 85025

== ENCOUNTER 2023-09-16 08:29 | Outpatient (CLI) | payer MEDICARE, SELFPAY ==
[2023-09-16 18:29] LABS: Alanine Aminotransferase 26 U/L (6-50); Albumin Level 4.2 g/dL (3.5-5.1); Alkaline Phosphatase 80 U/L (38-126); Anion Gap 12 mmol/L (8-16); Aspartate Amino Transferase 38 U/L (17-59); Bilirubin,Total 0.7 mg/dL (0.2-1.3); Blood Urea Nitrogen 26 mg/dL (9-20); Calcium 9.5 mg/dL (8.4-10.2); Carbon Dioxide 26 mmol/L (22-30); Chloride 101 mmol/L (98-107); Estimated Glomerular Filt Rate 58; Glucose 107 mg/dL (65-110); Potassium 4.4 mmol/L (3.4-5.0); Sodium 139 mmol/L (137-145)
[2023-09-16 20:39] LABS: Basophils Absolute Auto 0.1 K/mm3 (0.0-0.1); Basophils Percent Auto 1.6 % (0.2-1.2); Eosinophils Absolute Auto 0.3 K/mm3 (0-0.3); Eosinophils Percent Auto 3.9 % (0-4.4); Hematocrit 37.1 % (42.0-52.0); Hemoglobin 11.3 g/dL (14.0-18.0); Immature Granulocyte Absolute 0.02 K/mm3 (0.00-0.031); Immature Granulocyte Percent A 0.3 % (0-0.5); Lymphocytes Absolute Auto 2.35 K/mm3 (0.9-3.2); Lymphocytes Percent Auto 34.1 % (18.3-44.2); Mean Corpuscular HGB Conc 30.5 g/dl (32-36); Mean Corpuscular Hemoglobin 24.6 pg (26-34); Mean Corpuscular Volume 80.7 fl (80-100); Mean Platelet Volume 11.8 fl (7.4-10.4); Monocytes Absolute Auto 0.6 K/mm3 (0.1-0.6); Neutrophils Absolute Auto 3.5 K/mm3 (1.3-6.7); Neutrophils Percent Auto 51.1 % (45.5-73.1); Platelet Count Result 299 k/mm3 (150-375); Red Cell Distribution Width 14.1 % (11.5-14.5); White Blood Count 6.9 K/mm3 (4.5-10.0)
[2023-09-16 22:44] LABS: Hemoglobin A1C 7.4 % (<5.7)
== END 2023-09-16 08:30 | disposition home or self-care (01) ==
LOC: ANHGOSHLAB 08:31
PROVIDERS: PCP Internal Medicine; Visit Provider Internal Medicine
DX: E11.22 Type 2 diabetes mellitus with diabetic chronic kidney disease (principal); Z79.4 Long term (current) use of insulin; I10 Essential (primary) hypertension
CPT/HCPCS: 36415; 80053; 82728; 83036; 85025

== ENCOUNTER 2024-01-03 08:55 | Outpatient (CLI) | payer MEDICARE, SELFPAY ==
--- NOTE | ~2024-01-03 | NM_ITS ---
EXAMINATION: NM jas stress w perfusion DATE: 01/03/2024 10:56 INDICATION: Abnormal EKG TECHNIQUE: Rest images were obtained following intravenous administration of 9.7 mCi Tc99m tetrofosmi n (Myoview). The patient was infused intravenously with Lexiscan (Regadenoson). Then, 31.1 mCi Tc99m tetrofosmin (Myoview) was administered intravenously, and stress images were obtained, initially in t he supine position and with repeat post stress imaging obtained in the prone position. Data was recon structed into short axis and horizontal and vertical long axis SPECT images. Gated SPECT images were also obtained. COMPARISON: None. FINDINGS: There is likely artifactual mild decreased activity along portions of the inferior and late ral marc on the supine rest and stress imaging which normalizes with prone imaging. There is additio nal more subtle mild nonreversible decreased uptake at the apical septal and mid anteroseptal segment s which persists on the prone imaging suspicious for infarct. No reversible ischemia. There is normal left ventricular chamber size, wall motion and ejection fraction. Left ventricular ejection fractio n measures 68%. IMPRESSION: 1. Small region of subtle mild nonreversible decreased uptake at the apical septal and mid anterosept al segments consistent with infarct. No reversible ischemia. 2. Left ventricular ejection fraction measuring 68%. Reviewed, dictated and finalized at location A. [facility] IMPRESSION: 1. Small region of subtle mild nonreversible decreased uptake at the apical sep bryant and mid anteroseptal segments consistent with infarct. No reversible ischem ia. 2. Left ventricular ejection fraction measuring 68%.
--- NOTE | 2024-01-03 09:27 | EST_ITS ---
Patient Info Name: Dino Chan Age: 78 years : 1945 Gender: Male Ht: 71 in Wt: 194 lbs BSA: 2.11 m2 HR: 65 bpm BP: 144 / 61 mmHg Heart Rhythm: Sinus Rhythm Exam Date: 01/03/2024 9:50 AM Exam Location: Echo Lab Patient Status: Outpatient Admit Date: 01/03/2024 Staff Ordering Physician: Arlette Guerra Attending Provider: Arlette Guerra Exercise Technologist: Adalgisa Higgins CT Nurse: Mague Baxter APN Exam Type: CA stress jas w NM Study Info Indications R94.31 - Abnormal electrocardiogram ECG EKG A regadenoson stress test was performed. Summary 1. 1. Inconclusive lexiscan stress test for ischemic ST changes by ECG criteria due to baseline LBBB. 2. 2. Baseline hypertension. 3. 3. Nuclear scan to follow and will be reported separately. Please correlate with it. 4. 4. Patient informed of the above results. Protocol: Lexiscan Stress ECG Details Stage: REST Duration (min): 1 min : 3 sec HR (bpm): 64 SBP (mmHg): 144 DBP (mmHg): 61 Stage: REST Duration (min): 9 min : 43 sec HR (bpm): 66 SBP (mmHg): 144 DBP (mmHg): 61 Stage: STAGE 1 Duration (min): 0 min : 59 sec HR (bpm): 81 SBP (mmHg): 149 DBP (mmHg): 55 Stage: RECOVERY Duration (min): 1 min : 0 sec HR (bpm): 86 SBP (mmHg): 149 DBP (mmHg): 55 Stage: RECOVERY Duration (min): 2 min : 0 sec HR (bpm): 85 SBP (mmHg): 149 DBP (mmHg): 55 Stage: RECOVERY Duration (min): 3 min : 0 sec HR (bpm): 81 SBP (mmHg): 140 DBP (mmHg): 47 Stage: RECOVERY Duration (min): 3 min : 31 sec HR (bpm): 81 SBP (mmHg): 140 DBP (mmHg): 47 Rest HR: 66 bpm Peak HR: 88 bpm Rest Sys BP: 144 mmHg Peak Sys BP: 149 mmHg Max Pred HR: 141 bpm % Max Pred HR: 62 % Target HR: 120 bpm Max RPP: 13,112 bpm*mmHg Termination Reason: Completed protocol Cardiac Symptoms: Shortness of breath Total Time: 1 min : 0 sec Rest Tamayo BP: 61 mmHg Peak Tamayo BP: 55 mmHg Total Dose: 0.4 mg Resting ECG Sinus rhythm, first degree AV block, LBBB. Stress ECG No ST changes. Arrhythmias None. Report Signatures
== END 2024-01-03 08:56 | disposition home or self-care (01) ==
PROVIDERS: PCP Internal Medicine; Visit Provider Clinical Nurse Specialist
DX: R07.9 Chest pain, unspecified (principal); R06.02 Shortness of breath
CPT/HCPCS: 78452; 93017; A9502; J2785

== ENCOUNTER 2024-02-06 14:55 | Outpatient (CLI) | payer MEDICARE, SELFPAY ==
--- NOTE | 2024-02-06 15:38 | ECHO_ITS ---
Patient Info Name: Dino Chan Age: 78 years : 1945 Gender: Male Ht: 72 in Wt: 201 lbs BSA: 2.17 m2 HR: 69 bpm BP: 144 / 71 mmHg Heart Rhythm: Sinus Rhythm Technical Quality: Good Exam Date: 02/06/2024 3:48 PM Exam Location: Echo Lab Patient Status: Outpatient Admit Date: 02/06/2024 Staff Ordering Physician: Darron Louis DO [place] Office: Sacha Patton RDCS Attending Provider: Darron Louis DO Referring Physician: Heriberto BANDA; Exam Type: CA echo doppler color flow Study Info Indications - MCGUIRE Complete two-dimensional, color flow and Doppler transthoracic echocardiogram is performed. Summary 1. Complete two-dimensional, color flow and Doppler transthoracic echocardiogram is performed. 2. Left ventricular chamber dimension is normal. 3. Left ventricular systolic function is normal, estimated at 55-60%. 4. There is moderate concentric increased left ventricular wall thickness. 5. The left ventricular diastolic function is grade I diastolic dysfunction. 6. E/e' 11 is mildly elevated. 7. Left atrial chamber dimension is mildly enlarged. 8. There is mild mitral valve regurgitation. 9. No pulmonary hypertension, estimated pulmonary arterial systolic pressure is 15 mmHg. Left Ventricle E/e' 11 is mildly elevated. Left ventricular chamber dimension is normal. Left ventricular systolic function is normal, estimated at 55-60%. There is moderate concentric increased left ventricular wall thickness. The left ventricular diastolic function is grade I diastolic dysfunction. Right Ventricle Right ventricular systolic function is normal and with normal TAPSE 2.8 cm. Right ventricular chamber dimension is normal. Left Atria Left atrial chamber dimension is mildly enlarged. Right Atria Right atrial chamber dimension is normal. Aortic Valve The aortic valve is trileaflet. There is no aortic valve stenosis. There is no aortic valve regurgitation. Pulmonic Valve There is no pulmonic regurgitation. Mitral Valve There is no mitral valve stenosis. There is mild mitral valve regurgitation. Tricuspid Valve There is no tricuspid valve regurgitation. No pulmonary hypertension, estimated pulmonary arterial systolic pressure is 15 mmHg. Pericardium/Pleural There is no pericardial effusion. Inferior Vena Cava Normal inferior vena cava with >50% collapse upon inspiration consistent with normal right atrial pressure, 5 mmHg. Aorta The aortic root size at the sinus of Valsalva is normal. Left Ventricular Outflow Tract Name Value Normal LVOT 2D LVOT Diameter 2.1 cm LVOT Doppler LVOT Peak Gradient 4 mmHg LVOT Mean Gradient 2 mmHg LVOT VTI 23 cm LVOT VTI/AV VTI Ratio 1.0 LVOT Stroke Volume 82 ml LVOT CO 5.4 l/min LVOT CI 2.5 l/min/m2 Pulmonic Valve Name Value Normal RVOT Doppler
== END 2024-02-06 14:56 | disposition home or self-care (01) ==
LOC: ANHCARD 14:58
PROVIDERS: PCP Internal Medicine; Visit Provider Internal Medicine Cardiovascular Disease
DX: R06.09 Other forms of dyspnea (principal)
CPT/HCPCS: 93306

== ENCOUNTER 2024-03-17 08:15 | Outpatient (CLI) | payer MEDICARE, SELFPAY ==
[2024-03-17 18:41] LABS: Basophils Absolute Auto 0.1 K/mm3 (0.0-0.1); Basophils Percent Auto 1.4 % (0.2-1.2); Eosinophils Absolute Auto 0.2 K/mm3 (0-0.3); Eosinophils Percent Auto 2.6 % (0-4.4); Hematocrit 38.8 % (42.0-52.0); Immature Granulocyte Absolute 0.01 K/mm3 (0.00-0.031); Immature Granulocyte Percent A 0.1 % (0-0.5); Lymphocytes Absolute Auto 2.56 K/mm3 (0.9-3.2); Mean Corpuscular HGB Conc 30.9 g/dl (32-36); Mean Corpuscular Hemoglobin 25.2 pg (26-34); Mean Corpuscular Volume 81.5 fl (80-100); Mean Platelet Volume 12.1 fl (7.4-10.4); Monocytes Absolute Auto 0.8 K/mm3 (0.1-0.6); Monocytes Percent Auto 9.5 % (2.6-8.5); Neutrophils Absolute Auto 4.8 K/mm3 (1.3-6.7); Neutrophils Percent Auto 56.4 % (45.5-73.1); Platelet Count Result 262 k/mm3 (150-375); Red Blood Count 4.76 M/mm3 (4.6-6.20); Red Cell Distribution Width 16.8 % (11.5-14.5); White Blood Count 8.5 K/mm3 (4.5-10.0)
[2024-03-17 19:01] LABS: Alanine Aminotransferase 25 U/L (6-50); Albumin Level 4.7 g/dL (3.5-5.1); Alkaline Phosphatase 94 U/L (38-126); Anion Gap 11 mmol/L (4-12); Aspartate Amino Transferase 43 U/L (17-59); Bilirubin,Total 0.9 mg/dL (0.2-1.3); Blood Urea Nitrogen 23 mg/dL (9-20); Calcium 9.6 mg/dL (8.4-10.2); Carbon Dioxide 26 mmol/L (22-30); Chloride 103 mmol/L (98-107); Cholesterol 105 mg/dL (0-200); Estimated Glomerular Filt Rate 53; Glucose 149 mg/dL (65-110); HDL Direct 34 mg/dL; Potassium 4.3 mmol/L (3.4-5.0); Sodium 140 mmol/L (137-145); Triglycerides 119 mg/dL (<150)
[2024-03-17 19:12] LABS: LDL Cholesterol Direct 53 mg/dL
[2024-03-17 20:38] LABS: Hemoglobin A1C 7.5 % (<5.7)
[2024-03-20 12:29] LABS: Apolipoprotein B 57 mg/dL
== END 2024-03-17 08:16 | disposition home or self-care (01) ==
PROVIDERS: PCP Internal Medicine; Visit Provider Internal Medicine
DX: E11.22 Type 2 diabetes mellitus with diabetic chronic kidney disease (principal); I10 Essential (primary) hypertension; E78.5 Hyperlipidemia, unspecified; I51.89 Other ill-defined heart diseases
CPT/HCPCS: 36415; 80053; 80061; 82172; 83036; 85025

== ENCOUNTER 2024-08-12 11:32 | Outpatient (CLI) | payer MEDICARE, SELFPAY ==
[2024-08-12 17:03] LABS: Basophils Absolute Auto 0.1 K/mm3 (0.0-0.1); Basophils Percent Auto 1.5 % (0.2-1.2); Eosinophils Absolute Auto 0.3 K/mm3 (0-0.3); Eosinophils Percent Auto 3.7 % (0-4.4); Hematocrit 42.2 % (42.0-52.0); Hemoglobin 13.3 g/dL (14.0-18.0); Immature Granulocyte Absolute 0.02 K/mm3 (0.00-0.031); Immature Granulocyte Percent A 0.3 % (0-0.5); Lymphocytes Absolute Auto 2.22 K/mm3 (0.9-3.2); Lymphocytes Percent Auto 30.3 % (18.3-44.2); Mean Corpuscular HGB Conc 31.5 g/dl (32-36); Mean Corpuscular Hemoglobin 25.7 pg (26-34); Mean Corpuscular Volume 81.6 fl (80-100); Mean Platelet Volume 11.6 fl (7.4-10.4); Monocytes Absolute Auto 0.7 K/mm3 (0.1-0.6); Monocytes Percent Auto 9.5 % (2.6-8.5); Neutrophils Percent Auto 54.7 % (45.5-73.1); Platelet Count Result 258 k/mm3 (150-375); Red Blood Count 5.17 M/mm3 (4.6-6.20); Red Cell Distribution Width 14.6 % (11.5-14.5); White Blood Count 7.3 K/mm3 (4.5-10.0)
[2024-08-12 17:21] LABS: Alanine Aminotransferase 24 U/L (6-50); Albumin Level 4.2 g/dL (3.5-5.1); Alkaline Phosphatase 86 U/L (38-126); Anion Gap 10 mmol/L (4-12); Aspartate Amino Transferase 42 U/L (17-59); Bilirubin,Total 0.7 mg/dL (0.2-1.3); Blood Urea Nitrogen 15 mg/dL (9-20); Calcium 9.3 mg/dL (8.4-10.2); Carbon Dioxide 27 mmol/L (22-30); Chloride 103 mmol/L (98-107); Estimated Glomerular Filt Rate > 60; Glucose 177 mg/dL (65-110); Potassium 3.9 mmol/L (3.4-5.0); Sodium 140 mmol/L (137-145)
[2024-08-13 09:42] LABS: Hemoglobin A1C 8.2 % (<5.7)
== END 2024-08-12 11:33 | disposition home or self-care (01) ==
LOC: ANHGOSHLAB 11:34
PROVIDERS: PCP Internal Medicine; Visit Provider Clinical Nurse Specialist
DX: D18.01 Hemangioma of skin and subcutaneous tissue (principal); R19.7 Diarrhea, unspecified; E11.9 Type 2 diabetes mellitus without complications; Z79.4 Long term (current) use of insulin
CPT/HCPCS: 36415; 80053; 83036; 85025

== ENCOUNTER 2024-08-12 11:46 | Outpatient (CLI) | payer MEDICARE, SELFPAY ==
--- NOTE | ~2024-08-12 | XR_ITS ---
Clinical Indication: Shortness of breath PA and lateral views of the chest: Comparison: 06/18/2019 Findings: The lungs are clear, without evidence of focal consolidation or pleural effusion. Cardiome diastinal silhouette is within normal limits. Bones and soft tissues are unremarkable. Impression: Normal chest. Reviewed, dictated and finalized at location . Impression: Normal chest.
== END 2024-08-12 11:47 | disposition home or self-care (01) ==
PROVIDERS: PCP Internal Medicine; Visit Provider Clinical Nurse Specialist
DX: R06.02 Shortness of breath (principal)
CPT/HCPCS: 71046

== ENCOUNTER 2024-08-14 08:25 | Outpatient (CLI) | payer MEDICARE, SELFPAY ==
[2024-08-14 10:05] LABS: Toxigenic C. Diff NEGATIVE (NEGATIVE)
== END 2024-08-14 08:26 | disposition home or self-care (01) ==
PROVIDERS: PCP Internal Medicine; Visit Provider Clinical Nurse Specialist
DX: R19.7 Diarrhea, unspecified (principal)
CPT/HCPCS: 87045; 87427; 87449; 87493

== ENCOUNTER 2024-08-17 10:44 | Outpatient (CLI) | payer MEDICARE, SELFPAY ==
[2024-08-17 16:14] LABS: Add Urine Microscopic? NO; Appearance Urine Clear (Clear); Bilirubin Urine Negative (Negative); Blood Urine Negative (Negative); Color Urine Yellow (Yellow); Glucose Urine UA 3+ mg/dL (Negative); Ketones Urine Negative (Negative); Leukocyte Esterase Ur Negative LEU/UL (Negative); Nitrate Urine Negative (Negative); Protein Urine Negative (Negative); Specific Grav Ur 1.021 (1.001-1.035); Urobilinogen Urine 0.2 mg/dL (<2.0)
[2024-08-17 16:27] LABS: Creatine Kinase 72 U/L (55-170)
[2024-08-17 17:09] LABS: Hepatitis C Virus Antibody Negative (Negative)
[2024-08-17 17:14] LABS: Erythrocyte Sedimentation Rate 16 mm/hr (0-20)
== END 2024-08-17 10:45 | disposition home or self-care (01) ==
LOC: ANHGOSHLAB 10:45
PROVIDERS: PCP Internal Medicine; Visit Provider Internal Medicine
DX: R19.7 Diarrhea, unspecified (principal); R53.81 Other malaise; R53.83 Other fatigue; Z11.59 Encounter for screening for other viral diseases; E11.9 Type 2 diabetes mellitus without complications; Z79.4 Long term (current) use of insulin; M79.10 Myalgia, unspecified site
CPT/HCPCS: 36415; 81003; 82550; 84443; 85652; 86803

== ENCOUNTER 2025-01-02 10:34 | Emergency (ER) | payer MEDICARE, SELFPAY ==
--- NOTE | ~2025-01-02 | XR_ITS ---
EXAMINATION: XR elbow RT 2V DATE: 01/02/2025 11:09 INDICATION: Right elbow pain. TECHNIQUE: 2 views of right elbow were obtained. COMPARISON: None. FINDINGS: Alignment is normal. No fracture. There is mild elbow joint osteoarthritis. There is a larg e elbow joint effusion. IMPRESSION: 1. Mild elbow joint osteoarthritis. 2. Large elbow joint effusion. Reviewed, dictated and finalized at location A. 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
[2025-01-02 10:44] VITALS: BP 132/61; PULSE 69; RESP 16; TEMP 36.5; O2SAT 97
--- NOTE | 2025-01-02 10:44 | ED_ITS ---
HPI - General Adult General Chief complaint: Extremity Problem,Nontraumatic Stated complaint: right arm after blood draw painful Time Seen by Provider: 01/02/25 10:46 Source: patient, RN notes reviewed and old records reviewed Mode of arrival: ambulatory Limitations: no limitations History of Present Illness HPI narrative: 79-year-old male presents to the [facility] with complaints of generalized right elbow pain. Patient reports been hernia couple of days. States that he did have blood drawn on the 31 of December in [place]. Has a small bruise to the antecubital area. Pain is more lateral and posterior. States he denies any injury. Did carry cases of water yesterday. Has taken Tylenol. Decreased range of motion. Treatments prior to arrival: other (Tylenol) Related Data Home Medications ?Medication ?Instructions ?Recorded ?Confirmed ?Last Taken ?Type aspirin 81 mg tablet,delayed 81 mg PO DAILY 02/15/20 01/02/25 Unknown History release (Adult Low Dose Aspirin) multivitamin (Daily Multi-Vitamin 1 tablet PO DAILY 02/15/20 01/02/25 Unknown History tablet) semaglutide 0.25 mg or 0.5 mg (2 0.5 mg subcut WEEKLY 08/16/20 01/02/25 Unknown History mg/1.5 mL) subcutaneous pen injector (Ozempic) dapagliflozin propanediol 10 mg 10 mg PO QAM 02/13/22 01/02/25 Unknown History tablet (Farxiga) insulin degludec 100 unit/mL (3 20 unit subcut QHS 03/12/23 01/02/25 Unknown History mL) subcutaneous pen (Tresiba FlexTouch U-100 insulin) glipizide 10 mg tablet, extended 10 mg PO DAILY 01/02/25 01/02/25 Unknown History release 24 hr Allergies Allergy/AdvReac Type Severity Reaction Status Date / Time pentazocine Allergy Unknown Hives Verified 01/02/25 11:09 Review of Systems Review of Systems: All systems reviewed & are unremarkable except as noted in HPI and below Constitutional: Constitutional: Reports no additional constitutional complaints ENT: Reports system reviewed and no additional complaints, except as documented Cardiovascular: Cardiovascular: Reports no additional cardiovascular complaints, Denies chest pain and Denies dyspnea Respiratory: Respiratory: Reports no additional respiratory complaints, Denies chest congestion, Denies cough and Denies dyspnea Musculoskeletal: Musculoskeletal: Reports as per HPI Integumentary/Breasts: Skin/Breast: Reports system reviewed and no additional complaints, except as docu PMFSH Past Medical History Medical History (HFpEF) heart failure with preserved ejection fraction Malignant melanoma Type 2 diabetes mellitus with chronic kidney disease, with long-term current use of insulin History of diverticulitis Chronic kidney disease due to diabetes mellitus Diabetes mellitus with insulin therapy Wrist fracture JASON (obstructive sleep apnea) Diastasis recti Type 2 diabetes mellitus without complication, without long-term current use of insulin Insomnia Hypertriglyceridemia Essential hypertension Hemangioma Surgical History Surgical History History of back surgery x 3 History of repair of hiatal hernia Family History Family History Sibling Family history of malignant neoplasm of breast in first degree relative Family history of lung cancer Mother Patient's mother is Father Patient's father is Other Diabetes mellitus Family history of cardiovascular disease Family history of elevated blood lipids Hypertension Social History Social History Smoking packs per day: 2 Smoking cigarettes per day: 40.0 Years smoked: 7 Smoking pack-years: 14.00 Smoking status: Former smoker Tobacco type: cigarettes Smoking end date: 10/28/95 Alcohol intake: current Substance use: never Do You Feel Safe in your Home?: No Lack of Transportation: No Lack of Food: Never True Current Housing: I Have Housing Concerned About Future Housing: No Difficulty Paying Gas/Electric Bills: No Difficulty Paying for Meds: No Currently Unemployed: No Education: Associate Degree Difficulty w/ Childcare or Family Care: No Living arrangements: with family Gender identity (if verbalized by the patient): Male Spiritual care concerns: No Comments At the time of my signature, I reviewed and agree with the nursing past medical, surgical, social, and family history. There is no relevant family history pertinent to the patient complaint. Exam Const: General: cooperative, healthy appearing, comfortable, no acute distress, well developed, alert and well nourished Nutritional Appearance: well nourished Orientation/consciousness: patient oriented x3 Limitations: no limitations HENMT: Head: normal to inspection Eyes: General: appearance normal, both eyes and all related structures Alignment and Position: alignment normal Neck: Neck: normal visual inspection, full ROM, no lymphadenopathy and no meningeal signs Chest: Chest palpation & inspection: normal inspection of the chest Resp: Effort & Inspection: normal respiratory effort and able to speak in complete sentences Cardio: Rate: regular rate Skin: General skin exam: normal color and no rashes or lesions noted Neuro: General: patient oriented x3, gait normal, moves all extremities and no meningeal signs Cognition (Neuro): normal cognition Speech: normal speech Gait exam (Neuro): Normal gait present Extrem: General: normal to inspection, full ROM, capillary refill normal and normal gait Right upper extremity: elbow/forearm tenderness, swelling, abnormal ROM (Unable to completely extend) pain with active ROM during and pain with passive ROM during and distal pulses intact; no unusual warmth, no abrasions, no ecchymosis, no crepitus, no foreign bodies, no penetrating wound and no deformity Psych: Appearance: grossly normal and well kempt Mental Status: mental status grossly normal Speech and movement: Normal speech and movement present and Clear speech present Affect: normal affect Attitude: cooperative Course Course Level of Care: Express Care Visit Vital Signs Vital signs: Vital Signs Temperature 97.7 F 01/02/25 10:44 Pulse Rate 69 01/02/25 10:44 Respiratory Rate 16 01/02/25 10:44 Blood Pressure 132/61 01/02/25 10:44 Pulse Oximetry 97 01/02/25 10:44 Oxygen Delivery Room Air 01/02/25 10:44 Temperature 97.7 F 01/02/25 10:44 Pulse Rate 69 01/02/25 10:44 Respiratory Rate 16 01/02/25 10:44 Blood Pressure 132/61 01/02/25 10:44 Pulse Oximetry 97 01/02/25 10:44 Oxygen Delivery Room Air 01/02/25 10:44 Reviewed Medical Decision Making MDM Narrative Medical decision making narrative: Patient sitting comfortably in exam room. Nontoxic, vitals stable. Patient in no acute distress Patient presents for right elbow pain. Elbow x-ray shows osteoarthritis, effusion. No significant erythema, redness, increased warmth. Patient is appropriate for outpatient treatment with close follow-up Discharge instructions reviewed with patient, as well as provided in writing per nursing staff. The instructions also include specific and strict return/GO TO THE ER as well as f/u information. All questions have been answered, and the patient deny any further questions with discharge and discharge plan. Some parts of this dictation were generated by voice recognition software and may contain typographical and/or grammatical inaccuracies. Differential Diagnosis Differential Diagnosis: Phlebitis, osteoarthritis, tendinitis, olecranon bursitis Medical Records Medical records reviewed: Yes I reviewed the external patient's medical records. Vital Signs Vital Signs: Vital Signs Temperature 97.7 F 01/02/25 10:44 Pulse Rate 69 01/02/25 10:44 Respiratory Rate 16 01/02/25 10:44 Blood Pressure 132/61 01/02/25 10:44 Pulse Oximetry 97 01/02/25 10:44 Oxygen Delivery Room Air 01/02/25 10:44 Temperature 97.7 F 01/02/25 10:44 Pulse Rate 69 01/02/25 10:44 Respiratory Rate 16 01/02/25 10:44 Blood Pressure 132/61 01/02/25 10:44 Pulse Oximetry 97 01/02/25 10:44 Oxygen Delivery Room Air 01/02/25 10:44 Reviewed Lab Data Lab results reviewed: Yes I reviewed the patient's lab results. Labs: Reviewed Imaging Data Radiologist's impression: EXAMINATION: XR elbow RT 2V DATE: 01/02/2025 11:09 INDICATION: Right elbow pain. TECHNIQUE: 2 views of right elbow were obtained. COMPARISON: None. FINDINGS: Alignment is normal. No fracture. There is mild elbow joint osteoarthritis. There is a large elbow joint effusion. IMPRESSION: 1. Mild elbow joint osteoarthritis. 2. Large elbow joint effusion. Critical Care Time Critical Care Time Critical Care Time: No Discharge Plan Discharge Clinical Impression: Effusion of elbow joint, right, Osteoarthritis Patient Disposition: Home, Self-Care Condition: Stable Instructions: Antibiotic Form, Elbow Bursitis (ED), Osteoarthritis (DC) Additional Instructions: Rest, ice and elevate every 2-3 hours for 15-20 minutes while awake. Take Motrin alternating with Tylenol as needed for pain Wear the Nguyễn wrap for comfort Follow-up with primary care provider this week For new or worsening symptoms please go directly to the emergency room Patient Language: [place] Arabian Prescriptions: No Action glipizide 10 mg tablet extended release 24hr 10 mg PO DAILY insulin degludec [Tresiba FlexTouch U-100] 100 unit/mL (3 mL) insulin pen 20 unit subcut QHS aspirin [Adult Low Dose Aspirin] 81 mg tablet,delayed release (DR/EC) 81 mg PO DAILY multivitamin [Daily Multi-Vitamin] Tablet 1 tablet PO DAILY Ozempic 0.25 mg or 0.5 mg(2 mg/1.5 mL) pen injector 0.5 mg SUB-Q WEEKLY Farxiga 10 mg tablet 10 mg PO QAM atorvastatin 20 mg tablet 20 mg PO DAILY Qty: 90 1RF lisinopril-hydrochlorothiazide 20-12.5 mg tablet See Rx Instructions .ROUTE .COMPLEX Qty: 90 3RF Dose Instruction: TAKE 1 TABLET BY MOUTH EVERY DAY Rx Instructions: TAKE 1 TABLET BY MOUTH EVERY DAY fluticasone propionate 50 mcg/actuation spray,suspension See Rx Instructions .ROUTE .COMPLEX Qty: 48 0RF Dose Instruction: 1 SPRAY INTRANASALLY EVERY 12 HOURS ADMINISTER INTO EACH NOSTRIL Rx Instructions: 1 SPRAY INTRANASALLY EVERY 12 HOURS ADMINISTER INTO EACH NOSTRIL amlodipine 10 mg tablet See Rx Instructions .ROUTE .COMPLEX Qty: 90 1RF Dose Instruction: TAKE 1 TABLET BY MOUTH ONCE DAILY Rx Instructions: TAKE 1 TABLET BY MOUTH ONCE DAILY Follow-up/Referrals: Javad Willoughby DO [Primary Care Provider] - 1 Week (express care follow up ) Time of Disposition: 11:30
== END 2025-01-02 11:38 | disposition home or self-care (01) ==
PROVIDERS: Emergency Provider Nurse Practitioner; PCP Internal Medicine
DX: M25.421 Effusion, right elbow (principal); M19.021 Primary osteoarthritis, right elbow; E11.22 Type 2 diabetes mellitus with diabetic chronic kidney disease; I12.9 Hypertensive chronic kidney disease with stage 1 through stage 4 chronic kidney disease, or unspecified chronic kidney disease; N18.9 Chronic kidney disease, unspecified; Z79.4 Long term (current) use of insulin; Z79.899 Other long term (current) drug therapy; Z87.891 Personal history of nicotine dependence
CPT/HCPCS: 73070; 99213; G0463

== ENCOUNTER 2025-01-31 08:08 | Emergency (ER) | payer MEDICARE, SELFPAY ==
[2025-01-31] VITALS (20 sets, daily range): BP systolic 105–144; BP diastolic 43–66; PULSE 30–70; RESP 12–22; TEMP 36.4; O2SAT 96–100
--- NOTE | ~2025-01-31 | XR_ITS ---
XR chest 2V Ordering provider: Delmer Henderson MD History: 79 years Male with . cp . Comparison: August 12, 2024 FINDINGS: MEDIASTINUM: The cardiac silhouette is not enlarged. Congestive zay. LUNGS: No pneumothorax. Opacification in the left lung base is seen with minimal left pleural effusio n. OTHER: No free air under the diaphragm. Degenerative changes of the spine. IMPRESSION: Left basilar atelectasis versus pneumonia with minimal left pleural effusion Reviewed, dictated and finalized at location A.
--- NOTE | 2025-01-31 08:13 | ECG_ITS ---
Test Date: 2025-01-31 08:17:29 Measurements Intervals [place] Rate: 33 P: 0 IL: 0 QRS: -12 QRSD: 158 T: 134 QT: 507 QTc: 380 Interpretive Statements SINUS RHYTHM WITH SLOW VENTRICULAR RESPONSE WITH SECOND DEGREE AV BLOCK, TYPE II (MOBITZ II) LEFT BUNDLE BRANCH BLOCK BASELINE ARTIFACT- I, II, III, AVR, AVL, AVF, V1-V6 ABNORMAL ECG No previous ECG available for comparison Electronically Signed On 01-31-2025 12:05:32 CDT by Darron Louis D.O.
--- OUTSIDE RECORDS SUMMARY | 2025-01-31 08:26 | XMS_ITS | Clinical Summary ---
Author Organization [facility] [employer] Address [address] [place] [address] Care Team Providers Care Manager Delivery Name Role Phone NathanrosalinoJavad DO Primary Care Provider [phone] Source Comments [facility],non-owned Affiliates and Associated Physician Practices is amultiple site organization consisting of ambulatory clinics and hospital sitesin [place], [place], [place] and [place]. This disclosure is being madepursuant to the Care Everywhere program and may not contain all information available regarding this patient. Last updated 18.[facility] [employer] Social History Tobacco Use Types Packs/Day Years Used Date Smoking Tobacco: Never Assessed Sex and Gender Information Value Date Recorded Sex Assigned at Not on file Gender Identity Not on file Sexual Orientation Not on file Plan of Treatment Health Maintenance Due Date Last Done Comments DTAP/TDAP/TD VACCINES (1 - Tdap) 1963 PNEUMOCOCCAL VACCINE 50+ (1 of 1 - PCV) 1994 ZOSTER VACCINE (1 of 2) 1994 Respiratory Syncytial Virus (RSV) Vaccine Pt: or over 60 yrs (1 - 1-dose 75+ series) 2019 COVID-19 VACCINE ( - 2023-2 5 season) 2024 DEPRESSION SCREENING 10/28/2024 MEDICARE AWV CALENDAR YEAR 2024 INFLUENZA VACCINE (Season Ended) 2025 HEPATITIS B VACCINE Aged Out No longe r eligible based on patient's age to complete this topic HIB VACCINE Aged Out No longer eligi ble based on patient's age to complete this topic HPV VACCINE Aged Out No longer eligi ble based on patient's age to complete this topic MENINGOCOCCAL (Group B) VACC INE SHARED DECISION-MAKING Aged Out No longer eligibl e based on patient's age to complete this topic MENINGOCOCCAL GROUPS A/C/Y/W VACCINE Aged Out No longer eligible b ased on patient's age to complete this topic Care Teams Manager Delivery Relationship Specialty Start Date End Date Javad Willoughby DO PCP - General 07/06/22
--- OUTSIDE RECORDS SUMMARY | 2025-01-31 08:26 | XMS_ITS | Encounter Summary ---
Author Organization [facility] Address [address] [place] [id number] Care Team Providers Care [employer] Weaver Name Role Phone Javad Willoughby DO Primary Care Provider [phone] Javad Willoughby DO Primary Care Provider [phone] Encounter Details Date Type Department Care Team (Late st Contact Info) Description 03/21/2017 Orders Only [facility] ProviderTerell MD [address] [place] [id number] Social History Tobacco Use Types Packs/Day Years Used Date Smoking Tobacco: Never Assessed Sex and Gender Information Value Date Recorded Sex Assigned at Not on file 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 Historical Provider [facility] Final Result documented in this encounter Visit Diagnoses Not on filedocumented in this encounter Care Teams [employer] Weaver Relationship Specialty Start Date End Date Javad Willoughby DO PCP - General 09/05/15 06/14/24 Javad Willoughby DO PCP - General Internal Medicine 06/15/24 documented as of this encounter
--- OUTSIDE RECORDS SUMMARY | 2025-01-31 08:26 | XMS_ITS | Clinical Summary ---
Author Organization [facility] 8 [facility] Address [address] [place] [address] Care Team Providers Care Bolt Man Name Role Phone Javad Willoughby DO Primary Care Provider [phone] Allergies Active Allergy Reactions Criticality Noted Date Comments Pentazocine Other (See comments) Reaction: SHORT, Medications lisinopril-hydro CHLOROthiazide (PRINZIDE,ZESTOR ETIC) 20-12.5 mg per tabletIndication s:hypertension Take 1 tablet by mouth daily Active aspirin 81 mg tablet Take 1 tablet (81 mg total) by mouth daily Active multivitamin capsule Take 1 capsule by mouth daily Active magnesium gluconate 200 mg tabletIndication s:hypomagnesemia 2 tablets (400 mg total) daily Active atorvastatin (LIPITOR) 20 mg tabletIndication s:Hyperlipidemia associated with type 2 diabetes mellitus (HCC) Take 1 tablet (20 mg total) by mouth daily 1 8 Active blood-glucose meter kit Use daily or as directed for monitoring of diabetes On touch ultra 2 glucose meter DX E11.65 not insulin dependent 1 each 9 Active dapagliflozin (FARXIGA) 10 mg tablet Take 1 tablet (10 mg total) by mouth daily 56 tablet 2 Active amLODIPine (NORVASC) 10 mg tablet TAKE 1 TABLET BY MOUTH EVERY DAY 90 tablet 1 2 Active dapagliflozin propanediol (Farxiga) 10 mg tablet Take 1 tablet (10 mg total) by mouth daily 90 tablet 4 4 Active Farxiga 10 mg tablet Take 1 tablet (10 mg total) by mouth daily 28 tablet 4 Active semaglutide 0.25 mg or 0.5 mg (2 mg/3 mL) pen injector injectionIndicat ions:Type 2 diabetes mellitus with hyperglycemia, with long-term current use of insulin (HCC) Inject 0.5 mg under the skin once a week 9 mL 4 Active insulin degludec (TRESIBA) 200 unit/mL (3 mL) pen for injectionIndicat ions:Type 2 diabetes mellitus with hyperglycemia, with long-term current use of insulin ([facility]) Inject 0.1 mL (20 Units total) under the skin daily 9 mL 1 4 Active Farxiga 10 mg tabletIndication s:Type 2 diabetes mellitus with hyperglycemia, with long-term current use of insulin ([facility]) Take 1 tablet (10 mg total) by mouth daily 90 tablet 3 4 Active OneTouch Ultra Test stripIndications :Type 2 diabetes mellitus with hyperglycemia, without long-term current use of insulin ([facility]) USE TO TEST 3 TIMES DAILY DX:E11.65 INSULIN DEPENDENT 100 strip 3 4 Active pen needle, diabetic (BD Lula 2nd Gen Pen Needle) 32 gauge x 5/32 needleIndication s:Type 2 diabetes mellitus with hyperglycemia, without long-term current use of insulin ([facility]) USE 1 DAILY FOR INSULIN USE 100 each 3 5 Active glipiZIDE XL (GLUCOTROL XL) 10 mg 24 hr tabletIndication s:type 2 diabetes mellitus Take 1 tablet (10 mg total) by mouth daily 90 tablet 3 5 11/30/19 26 Active Farxiga 10 mg tablet Take 1 tablet (10 mg total) by mouth daily 28 tablet 5 Active TOUJEO MAX 300 unit/mL (3 mL) pen for injection Inject 20 Units under the skin daily 3 mL 5 Active Ozempic 0.25 mg or 0.5 mg(2 mg/1.5 mL) pen injector injection Inject 0.38 mL (0.5067 mg total) under the skin once a week 3 mL 5 Active TRESIBA 200 unit/mL (3 mL) pen for injection Inject 0.1 mL (20 Units total) under the skin daily 5 Active Ozempic 0.25 mg or 0.5 mg(2 mg/1.5 mL) pen injector injection Inject 0.5 mg under the skin once a week Inject 0.25mg once a week for 4 weeks then increase to 0.5mg weekly. 5 Active pen needle, diabetic 32 gauge x 1/4 needle Use daily to inject Tresiba 5 Active Active Problems Problem Noted Date Diagnosed Date Stage 3 chronic kidney disease 08/17/2019 Assessment & Plan (06/04/2022 1:40 PM CDT): Recheck renal function today Assessment & Plan (03/13/2021 10:25 PM CDT): Recheck renal function Assessment & Plan (11/21/2020 4:23 PM ALL [employer]OUND [employer]CHER): Chronic , stable Assessment & Plan (07/21/2020 8:50 PM CDT): Chronic , stable Assessment & Plan (05/09/2020 1:41 PM CDT): Chronic , stable Assessment & Plan (01/04/2020 9:30 PM CDT): Chronic , stable Assessment & Plan (08/17/2019 2:09 PM CDT): Chronic , stable Overweight with body mass in dex (BMI) of 28 to 28.9 in adult 07/08/2017 Assessment & Plan (06/04/2022 1:40 PM CDT): Counseled on diet and exercise Assessment & Plan (02/12/2022 2:02 PM CDT): Counseled on diet and exercise Assessment & Plan (03/13/2021 10:23 PM CDT): Chronic, worsening Discussed about healthy lifestyle habits Counseled on diet and exercise Assessment & Plan (11/21/2020 4:22 PM [employer]ER): Chronic, uncharged Counseled on diet and exercise Assessment & Plan (07/21/2020 8:49 PM CDT): Chronic, uncharged Counseled on diet and exercise Assessment & Plan (05/09/2020 1:41 PM CDT): Strongly advised to increase resistance and strength training Assessment & Plan (01/04/2020 9:30 PM CDT): Strongly advised ot increase resistance and strength training Assessment & Plan (08/17/2019 2:07 PM CDT): Chronic, improving Discussed about healthy lifestyle habits advise to work on healthy diet, avoid processed foods , increase vegetables and protein and cut back on carb portions and also avoid fruit juices and regular soda and desserts Increase physical activity , recommend at least 150 min of aerobic activity per week and include resistance training 2 x weekly Assessment & Plan (04/27/2019 9:56 PM CDT): Obesity is improving Discussed the patient's BMI. The BMI is above average; BMI management plan is completed. General weight loss/lifestyle modification strategies discussed (elicit support from others; identify saboteurs; non-food rewards, etc). Behavioral treatment: stress management. Diet interventions: moderate (500 kCal/d) deficit diet. Informal exercise measures discussed, e.g. taking stairs instead of elevator. Regular aerobic exercise program discussed. Assessment & Plan (01/05/2019 9:55 AM CDT): Obesity is worsening. Discussed the patient's BMI. The BMI is above average; BMI management plan is completed. General weight loss/lifestyle modification strategies discussed (elicit support from others; identify saboteurs; non-food rewards, etc). Behavioral treatment: stress management. Diet interventions: moderate (500 kCal/d) deficit diet. Informal exercise measures discussed, e.g. taking stairs instead of elevator. Regular aerobic exercise program discussed. Assessment & Plan (01/20/2018 9:04 PM CDT): Obesity is unchanged. Discussed the patient's BMI. The BMI is above average; BMI management plan is completed. General weight loss/lifestyle modification strategies discussed (elicit support from others; identify saboteurs; non-food rewards, etc). Behavioral treatment: stress management. Diet interventions: moderate (500 kCal/d) deficit diet. Informal exercise measures discussed, e.g. taking stairs instead of elevator. Regular aerobic exercise program discussed. Assessment & Plan (07/08/2017 10:04 AM CDT): Obesity is unchanged. Discussed the patient's BMI. The BMI is above average; BMI management plan is completed. General weight loss/lifestyle modification strategies discussed (elicit support from others; identify saboteurs; non-food rewards, etc). Behavioral treatment: stress management. Diet interventions: moderate (500 kCal/d) deficit diet. Informal exercise measures discussed, e.g. taking stairs instead of elevator. Regular aerobic exercise program discussed. Type 2 diabetes mellitus wit h hyperglycemia, with long-term current use of insulin 04/01/2017 Assessment & Plan (06/15/2024 1:44 PM CDT): Chronic problem. A1c improved from 7.7% 12/16/23 to now 7.3%. Samples given for Ozempic & tresiba. Informed him that we will not be able to keep giving Tresiba samples as we aren't going to be receiving more. Current medications: Farxiga 10mg daily (PAP) Metformin XR 1000mg twice daily with meals Glipizide 10mg twice daily with meals Ozempic 0.5mg weekly (samples) Tresiba 20 units at bedtime (samples) Will update labs today. Does not mychart. Verified phone #/address to contact re: results. UTD on DM eye exam (04/23/24 no DMR). Discussed with Dino Chan: Strive for regular exercise (30min most days) and diet (get at least 4-5 servings of fruit and veggies daily, avoid processed foods, increase lean protein intake and decrease carb portions as well as fruit juices, regular soda & desserts). Watch carbs and simple sugars. Check the blood sugar: daily. Check the feet daily for skin breakdown and infection. Assessment & Plan (12/17/2023 12:46 PM [employer]CHER): Chronic, overall fairly controlled for patient age and limitations A1c 7.7% Counseled on diet and exercise Continue Ozempic 0.5 mg subQ weekly ( on samples ) Continue Farxiga 10 mg oral daily ( on PA) Continue metformin and current insulin doses - give patient assistance forms for Ozempic and Tresiba Advised to make an diabetic eye exam appointment soon Daily foot care Follow-up in 6 months Assessment & Plan (06/17/2023 1:20 PM CDT): Chronic, overall fairly controlled for patient age A1c 7.7% Counseled on diet and exercise Continue Ozempic 0.5 mg subQ weekly ( on samples ) Continue Farxiga 10 mg oral daily Continue metformin and current insulin doses Advised to make an diabetic eye exam appointment soon Daily foot care Labs today Follow-up in 6 months Assessment & Plan (12/03/2022 1:45 PM [employer]CHER): Chronic, uncontrolled, worsening A1c 7.4 % C/w Metformin XR 1000 mg oral twice a day and glipizide the same Gave Toujeo pen samples and Farxiga/ Jardiance Samples Stop ozempic As we do not have anymore samples and pt failed pt assistance program Annual dilated eye exam Daily foot care Counseled on diet and exercise Will try to obtain pt recent lab results Follow-up as scheduled Assessment & Plan (06/04/2022 1:40 PM CDT): Chronic, uncontrolled, improving A1c 6.8% C/w Metformin 1000 mg oral twice a day Continue rest all the medications the same Gave Tresiba, Ozempic, Farxiga samples Annual dilated eye exam Daily foot care Counseled on diet and exercise Labs today Follow-up as scheduled Assessment & Plan (02/12/2022 2:02 PM CDT): Chronic, uncontrolled, unchanged A1c 7.8% Increase metformin to 1000 mg oral twice a day Continue rest all the medications the same Gave Tresiba, Ozempic, Farxiga samples Annual dilated eye exam Daily foot care Counseled on diet and exercise Follow-up as scheduled Assessment & Plan (11/20/2021 2:21 PM [employer]): Chronic, Uncontrolled, worsening HbA1c - 7.9 % Counseled on diet and exercise - pt cannot afford lot of medications copay cost Andhe cannot afford [employer] brand insulin at out of pocket cost - therefore pt has been getting Samples from our office - farxiga 10 mg oral daily ( gave samples ) - Metformin 500 mg one tab oral BID - continue Glipizide - Tresiba 20 units Sq daily at Bedtime ( gave samples ) - Ozempic 0.5 mg SQ weekly ( gave samples ) - counseled on diet and exercise - advise to keep checking BS at home - follow up in 3 months Assessment & Plan (07/17/2021 3:57 PM CDT): Chronic, improving control HbA1c - 7.2 % Counseled on diet and exercise - pt cannot afford lot of medications copay cost Andhe cannot afford [employer] brand insulin at out of pocket cost - therefore pt has been getting Samples from our office - farxiga 10 mg oral daily ( gave samples ) - Metformin 500 mg one tab oral BID - continue Glipizide - Tresiba 20 units Sq daily at Bedtime ( gave samples ) - Ozempic 0.5 mg SQ weekly ( gave samples ) - counseled on diet and exercise - advise to keep checking BS at home - follow up in 4 months Assessment & Plan (03/13/2021 10:22 PM CDT): Chronic, Uncontrolled, worsening HbA1c - 8.1 % Counseled on diet and exercise - pt cannot afford lot of medications copay cost Andhe cannot afford [employer] brand insulin at out of pocket cost - therefore pt has been getting Samples from our office - farxiga 10 mg oral daily ( gave samples ) - Metformin 500 mg one tab oral BID - continue Glipizide - Tresiba 20 units Sq daily at Bedtime ( gave samples ) - Ozempic 0.5 mg SQ weekly ( gave samples ) - counseled on diet and exercise - advise to keep checking BS at home - follow up in 3 months Assessment & Plan (11/21/2020 4:22 PM [employer]): Chronic, Improving with treatment HbA1c - 7.3 % - pt cannot afford lot of medications copay cost Andhe cannot afford [employer] brand insulin at out of pocket cost - therefore pt has been getting Samples from our office - farxiga 10 mg oral daily ( gave samples ) - Metformin 500 mg one tab oral BID - continue Glipizide - Tresiba 20 units Sq daily at Bedtime ( gave samples ) - Ozempic 0.5 mg SQ weekly ( gave samples ) - counseled on diet and exercise - advise to keep checking BS at home - follow up in 4 months Assessment & Plan (07/21/2020 8:49 PM CDT): Chronic, Improving with treatment HbA1c - 7.3 % - pt cannot afford lot of medications copay cost Andhe cannot afford [employer] brand insulin at out of pocket cost - therefore pt has been getting Samples from our office - Start Taking farxiga 10 mg oral daily ( gave samples ) - Metformin 500 mg one tab oral BID - continue Glipizide - Tresiba 20 units Sq daily at Bedtime ( gave samples ) - Ozempic 0.5 mg SQ weekly ( gave samples ) - counseled on diet and exercise - advise to keep checking BS at home - follow up in 4 months Assessment & Plan (05/09/2020 1:45 PM CDT): Chronic, worsening HbA1c - 8.8 % - pt cannot afford lot of medications copay cost And he states he cannot even afford [employer] brand insulin at out of pocket cost - gave samples today in office - Start Taking Xigduo XR 10 mg / 500 mg - take one tab oral daily ( gave samples ) - Metformin 500 mg - one tab - continue Glipizide - start Tresiba 20 units Sq daily at Bedtime ( gave samples ) - start Ozempic 0.5 mg SQ weekly ( gave samples ) - counseled on diet and exercise - advise to keep checking BS at home - follow up in 2 months Assessment & Plan (01/04/2020 9:29 PM CDT): Chronic, improving HbA1c - 7.5 % - pt cannot afford lot of medications copay cost - gave samples today in office - stop januvia - Stop Repaglinide - Continue Farxiga 10 mg oral daily Continue Metformin ER 500 mg oral twice daily - continue lantus 20 units SQ daily at bedtime - Ozempic 0.5 mg SQ weekly - counseled on diet and exercise - advise to keep checking BS at home - follow up in 3 months Assessment & Plan (08/17/2019 2:10 PM CDT): Worsening , A1c - 11.1 % - poor pt compliance to diet, unhealthy snacking and high carb intake with meals - mediation changes per orders - start Lantus 20 units SQ daily at bedtime If your fasting blood sugars are over 140 , increase Lantus dose by 2-4 units every week - increase Ozempic to 1 mg SQ weekly - continue rest all the same - check blood sugars more often , Bring glucometer with each visit - cut back on Carbs and fruit portion And sugary stuff - advise to increase physical activity - patient samples of Lantus pens, ozempic pens, farxiga , as pt in [facility] - follow up in 6 week to see [employer] - Berenice Machado and in 3 months with me Assessment & Plan (04/27/2019 9:57 PM CDT): Worsening , A1c - 10.3 % Stop Januvia - start Ozempic 0.25 mg SQ weekly every Saturday For 4 weeks and than increase to 0.5 mg SQ weekly - advise very good oral hydration - continue rest all meds - work on diet and exercise - bring blood sugar log with each visit - pt recently had lab work up at PCP office , will try to obtain test results Assessment & Plan (01/05/2019 9:56 AM CDT): Diabetes is unchanged. A1c today - 7.9 % Advised pt to increase physical activity and work on healthy weight loss Increase Prandin to 1 mg oral BID Advised to stop Prandin if having BS less than 90 Advise good oral hydration Check BMP Gave pt Farxiga samples today Advise to see eye doctor REANNA Follow up in 4 months Reminded to bring in blood sugar diary at next visit. Dietary recommendations for ADA diet. Regular aerobic exercise. Discussed ways to avoid symptomatic hypoglycemia. Discussed sick day management. Discussed foot care. Reminded to get yearly retinal exam. Medication changes per orders. Diabetes will be reassessed in 4 months . Assessment & Plan (10/21/2018 6:04 PM [employer]): Diabetes is improving with treatment. A1c today 7.8 % Continue current treatment regimen. Reminded to bring in blood sugar diary at next visit. Dietary recommendations for ADA diet. Regular aerobic exercise. Discussed ways to avoid symptomatic hypoglycemia. Discussed sick day management. Discussed foot care. Reminded to get yearly retinal exam. Diabetes will be reassessed in 3 months. Assessment & Plan (07/21/2018 10:18 PM CDT): Diabetes is worsening. Last A1c 05/2018 - 9.6 % - re inforced on carb controlled diet - advise to start checking his BS pre dinner - advise to increase Farxiga 10 mg oral daily - rest all continue same - recommend good hydration - check BMP before next follow up visit. Reminded to bring in blood sugar diary at next visit. Dietary recommendations for ADA diet. Regular aerobic exercise. Discussed ways to avoid symptomatic hypoglycemia. Discussed sick day management. Discussed foot care. Reminded to get yearly retinal exam. Medication changes per orders. Diabetes will be reassessed in 2 months . Assessment & Plan (01/20/2018 9:10 PM CDT): Diabetes is improving with treatment. And diet A1c today - 7.9 % , improving from last month 11/2017 - 8.7 % - reviewed pt. BS log - fasting BS are still high, Pre dinner BS are on lower side - advised to change Repaglinide 1 mg oral daily with dinner , skip with breakfast - advised to continue rest all same - strongly advised to work on portion controlled diet and increase physical activity - if having hypoglycemia, advised to cut back on glipizide - recheck A1c in 3 months - follow Up in 6 months Reminded to bring in blood sugar diary at next visit. Dietary recommendations for ADA diet. Regular aerobic exercise. Discussed ways to avoid symptomatic hypoglycemia. Discussed sick day management. Discussed foot care. Reminded to get yearly retinal exam. Medication changes per orders. Diabetes will be reassessed in 6 months. Assessment & Plan (07/08/2017 10:03 AM CDT): - HbA1c today - 7.7% % - good control, without hypoglycemia , given pt. Age Improving No hypoglycemia Will obtain recent blood work results from PCP Diabetes is improving with treatment. Continue current treatment regimen. Reminded to bring in blood sugar diary at next visit. Dietary recommendations for ADA diet. Regular aerobic exercise. Discussed ways to avoid symptomatic hypoglycemia. Discussed sick day management. Discussed foot care. Advised good oral hydration Advised to see eye doctor as soon as possible Advised atleast annual dilated eye exam Check labs soon - CMP , HAKEEM, Lipid panel Will obtain labs from PCP and [facility] Diabetes will be reassessed in 6 months Instructions for Hypoglycemia When your BS is low, check your BS level as soon as possible. However, but if the monitoring equipment (blood glucose meter, test strips, lancet) is not available go ahead and treat yourself for low blood sugar. Treat yourself quickly, especially if your blood sugar is less than 40 mg/dL If your blood sugar is 51 to 70 mg/dL , eat 1/2 cup fruit juice or 6 to 8 hard candies or 3 to 4 glucose tablets. If you are less than 50 mg/dL Eat 1 cup fruit juice or 14 hard candies or 6 to 8 glucose tablets. Retest after 15 minutes and repeat treatment if needed Assessment & Plan (04/01/2017 10:29 AM CDT): - HbA1c today - 8.0 % - good control, without hypoglycemia , given pt. Age Diabetes is improving with treatment. Continue current treatment regimen. Reminded to bring in blood sugar diary at next visit. Dietary recommendations for ADA diet. Regular aerobic exercise. Discussed ways to avoid symptomatic hypoglycemia. Discussed sick day management. Discussed foot care. Advised good oral hydration Advised to see eye doctor as soon as possible Advised atleast annual dilated eye exam Check labs soon - CMP , HAKEEM, Lipid panel Will obtain labs from [facility] and [facility] Diabetes will be reassessed in 3 months. Instructions for Hypoglycemia When your BS is low, check your BS level as soon as possible. However, but if the monitoring equipment (blood glucose meter, test strips, lancet) is not available go ahead and treat yourself for low blood sugar. Treat yourself quickly, especially if your blood sugar is less than 40 mg/dL If your blood sugar is 51 to 70 mg/dL , eat 1/2 cup fruit juice or 6 to 8 hard candies or 3 to 4 glucose tablets. If you are less than 50 mg/dL Eat 1 cup fruit juice or 14 hard candies or 6 to 8 glucose tablets. Retest after 15 minutes and repeat treatment if needed Hypertension associated with diabetes 04/01/2017 Assessment & Plan (06/15/2024 1:43 PM CDT): Chronic problem. Currently taking Lisinopril-HCTZ 20-12.5mg daily, amlodipine 10mg daily Will update labs today. Does not mychart. Verified phone #/address to contact re: results. Assessment & Plan (12/17/2023 12:45 PM [employer]): Chronic, well controlled Continue current dose of amlodipine, lisinopril/hydrochlorothiazide Assessment & Plan (06/17/2023 1:20 PM CDT): Hypertension is chronic, well controlled . Continue current treatment regimen. Dietary sodium restriction. Weight loss. Regular aerobic exercise. Blood pressure will be reassessed at the next regular appointment. Assessment & Plan (12/03/2022 1:42 PM [employer]): Hypertension is chronic, well controlled . Continue current treatment regimen. Dietary sodium restriction. Weight loss. Regular aerobic exercise. Blood pressure will be reassessed at the next regular appointment. Assessment & Plan (06/04/2022 1:38 PM CDT): Hypertension is chronic, well controlled . Continue current treatment regimen. Dietary sodium restriction. Weight loss. Regular aerobic exercise. Blood pressure will be reassessed at the next regular appointment. Assessment & Plan (02/12/2022 2:01 PM CDT): Hypertension is chronic, well controlled . Continue current treatment regimen. Dietary sodium restriction. Weight loss. Regular aerobic exercise. Blood pressure will be reassessed at the next regular appointment. Assessment & Plan (11/20/2021 1:56 PM [employer]): Hypertension is chronic, well controlled . Continue current treatment regimen. Dietary sodium restriction. Weight loss. Regular aerobic exercise. Blood pressure will be reassessed at the next regular appointment. Assessment & Plan (07/17/2021 3:58 PM CDT): Hypertension is chronic, well controlled . Continue current treatment regimen. Dietary sodium restriction. Weight loss. Regular aerobic exercise. Blood pressure will be reassessed at the next regular appointment. Assessment & Plan (03/13/2021 10:22 PM CDT): Hypertension is chronic, well controlled . Continue current treatment regimen. Dietary sodium restriction. Weight loss. Regular aerobic exercise. Blood pressure will be reassessed at the next regular appointment. Assessment & Plan (11/21/2020 4:22 PM [employer]ER): Hypertension is chronic, well controlled . Continue current treatment regimen. Dietary sodium restriction. Weight loss. Regular aerobic exercise. Blood pressure will be reassessed at the next regular appointment. Assessment & Plan (07/21/2020 8:49 PM CDT): Hypertension is chronic, well controlled . Continue current treatment regimen. Dietary sodium restriction. Weight loss. Regular aerobic exercise. Blood pressure will be reassessed at the next regular appointment. Assessment & Plan (05/09/2020 1:41 PM CDT): Hypertension is chronic, well controlled . Continue current treatment regimen. Dietary sodium restriction. Weight loss. Regular aerobic exercise. Blood pressure will be reassessed at the next regular appointment. Assessment & Plan (01/04/2020 9:29 PM CDT): Hypertension is chronic, well controlled . Continue current treatment regimen. Dietary sodium restriction. Weight loss. Regular aerobic exercise. Blood pressure will be reassessed at the next regular appointment. Assessment & Plan (08/17/2019 2:07 PM CDT): Hypertension is chronic, well controlled . Continue current treatment regimen. Dietary sodium restriction. Weight loss. Regular aerobic exercise. Blood pressure will be reassessed at the next regular appointment. Assessment & Plan (04/27/2019 9:56 PM CDT): Hypertension is chronic, well controlled . Continue current treatment regimen. Dietary sodium restriction. Weight loss. Regular aerobic exercise. Blood pressure will be reassessed at the next regular appointment. Assessment & Plan (01/05/2019 9:54 AM CDT): Hypertension is chronic, well controlled . Continue current treatment regimen. Dietary sodium restriction. Weight loss. Regular aerobic exercise. Blood pressure will be reassessed at the next regular appointment. Assessment & Plan (10/21/2018 6:04 PM [employer]CHER): Hypertension is improving with treatment. Continue current treatment regimen. Dietary sodium restriction. Weight loss. Regular aerobic exercise. Continue current medications. Blood pressure will be reassessed at the next regular appointment. Assessment & Plan (01/20/2018 9:04 PM CDT): Hypertension is improving with treatment. Continue current treatment regimen. Dietary sodium restriction. Weight loss. Regular aerobic exercise. Continue current medications. Blood pressure will be reassessed at the next regular appointment. Assessment & Plan (07/08/2017 10:04 AM CDT): Hypertension is at goal, well controlled, stable . Continue current treatment regimen. Ambulatory blood pressure monitoring. Blood pressure will be reassessed in 6 months Assessment & Plan (04/01/2017 10:26 AM CDT): Hypertension is at goal, well controlled, stable . Continue current treatment regimen. Ambulatory blood pressure monitoring. Blood pressure will be reassessed in 3 months. - advised to notify us if BP at home on lower side. Hyperlipidemia associated with type 2 diabetes deni malone 04/01/2017 Assessment & Plan (06/15/2024 1:43 PM CDT): Chronic problem. Currently taking Atorvastatin 20mg. Last lipid panel: 06/17/23 LDL=49, ZA=527. Will update labs today. Does not mychart. Verified phone #/address to contact re: results. Assessment & Plan (12/17/2023 12:45 PM [employer]CHER): Continue current statin therapy Assessment & Plan (06/17/2023 1:21 PM CDT): - Pt. On Simvastatin 40 mg oral daily - advised low Fat/chol diet Recheck lipid panel today and further plans based on it Assessment & Plan (12/03/2022 1:42 PM [employer]): - Pt. On Simvastatin 40 mg oral daily - advised low Fat/chol diet - Assessment & Plan (06/04/2022 1:39 PM CDT): - Pt. On Simvastatin 40 mg oral daily - advised low Fat/chol diet - recheck lipid panel Assessment & Plan (02/12/2022 2:01 PM CDT): - Pt. On Simvastatin 40 mg oral daily - advised low Fat/chol diet Assessment & Plan (11/20/2021 1:56 PM [employer]): - Pt. On Simvastatin 40 mg oral daily - advised low Fat/chol diet Assessment & Plan (07/17/2021 3:58 PM CDT): - Pt. On Simvastatin 40 mg oral daily - advised low Fat/chol diet Assessment & Plan (03/13/2021 10:23 PM CDT): - Pt. On Simvastatin 40 mg oral daily - advised low Fat/chol diet Assessment & Plan (11/21/2020 4:22 PM [employer]): - Pt. On Simvastatin 40 mg oral daily - advised low Fat/chol diet Assessment & Plan (07/21/2020 8:49 PM CDT): - Pt. On Simvastatin 40 mg oral daily - advised low Fat/chol diet Assessment & Plan (05/09/2020 1:41 PM CDT): - Pt. On Simvastatin 40 mg oral daily - advised low Fat/chol diet Assessment & Plan (01/04/2020 9:30 PM CDT): - Pt. On Simvastatin 40 mg oral daily - advised low Fat/chol diet Assessment & Plan (08/17/2019 2:07 PM CDT): - Pt. On Simvastatin 40 mg oral daily - advised low Fat/chol diet Low HDL - advised to increase aerobic exercise and recommend weight loss Assessment & Plan (04/27/2019 9:55 PM CDT): - Pt. On Simvastatin 40 mg oral daily - advised low Fat/chol diet Low HDL - advised to increase aerobic exercise and recommend weight loss Assessment & Plan (01/05/2019 9:55 AM CDT): - Pt. On Simvastatin 40 mg oral daily - advised low Fat/chol diet Low HDL - advised to increase aerobic exercise and recommend weight loss Assessment & Plan (10/21/2018 6:04 PM [employer]): - Pt. On Simvastatin 40 mg oral daily - advised low Fat/chol diet Low HDL - advised to increase aerobic exercise and recommend weight loss Assessment & Plan (01/20/2018 9:12 PM CDT): - Pt. On Simvastatin 40 mg oral daily - advised low Fat/chol diet - reviewed recent lipid panel results - 12/24/2017 LDL- 66 Low HDL - advised to increase aerobic exercise and recommend weight loss Assessment & Plan (07/08/2017 10:04 AM CDT): - Pt. On Simvastatin 40 mg oral daily - advised low Fat/chol diet - will obtain lipid panel results from PCP Assessment & Plan (04/01/2017 10:25 AM CDT): - Pt. 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 Pain of upper extremity 04/09/2016 Encounters Date Type Department Care Team Description 01/18/2025 Telephone [facility] [address] [id number] Marci Sadler MD Med Management 12/07/2024 Telephone [facility] Diabetes [facility] Endocrinology [address] [place] [phone] Marci Sadler MD Med Management (AZ&Me pt assistance) 11/30/2024 1:00 PM [employer] Office Visit [facility] Diabetes [facility] Endocrinology [address] [place] [phone] Marci Sadler MD Type 2 diabetes mellitus with hyperglycemia, with long-term current use of insulin (HCC) (Primary Dx); Hyperlipidemia associated with type 2 diabetes mellitus (HCC); Hypertension associated with diabetes (HCC); Overweight with body mass index (BMI) of 28 to 28.9 in adult from Last 3 Months Surgical History Surgery Date Site/Laterality Comments BACK SURGERY KNEE SURGERY SHOULDER ARTHROPLASTY Medical History Medical History Date Comments Hypertension Type 2 diabetes mellitus (HCC) High cholesterol High cholesterol Diverticulitis Diverticulitis Family History Medical History Relation Name Comments Hypertension Father Heart disease Mother Relation Name Status Comments Father Mother Social History Tobacco Use Types Packs/Day Years Used Date Smoking Tobacco: Former Smokeless Tobacco: Never Alcohol Use Standard Drinks/Week Comments Yes 0 (1 standard drink = 0.6 oz pur e alcohol) once every 6 months PHQ-2 Answer Date Recorded PHQ-2 Total Score (If total score is 3 or more points, staff should administer the PHQ-9) 0 06/04/2022 Sex and Gender Information Value Date Recorded Sex Assigned at Not on file Legal Sex Male 1:20 AM [employer] Gender Identity Not on file Sexual Orientation Not on file Obstetrics History Last Filed Vital Signs Vital Sign Reading Time Taken Comments Blood Pressure 122/72 11/30/2024 12:59 PM [employer] Pulse 70 11/30/2024 12:59 PM [employer] Temperature - - Respiratory Rate 16 11/30/2024 12:59 PM [employer] Oxygen Saturation - - Inhaled Oxygen Concentration - - Weight 93 kg (205 lb) 11/30/2024 12:59 PM [employer] Height 177.8 cm (5' 10 ) 11/30/2024 12:59 PM [employer] Body Mass Index 29.41 11/30/2024 12:59 PM [employer] Plan of Treatment Health Maintenance Due Date Last Done Comments DTaP/Tdap/Td Vaccine (1 - Tdap) 1956 Hepatitis B Screening 1963 Abdominal Aortic Aneurysm (A AA) Screen 2009 Well Visit 65+ 2009 Pneumococcal vaccine 65+ (2 of 2 - PPSV23) 09/21/2017 07/27/2017 Depression Screening 06/04/2023 06/04/2022, 02/12/2022, 11/20/2021, Additional history exists Fall Risk Assessment 12/16/2024 12/16/2023 Foot Exam 12/16/2024 12/16/2023, 05/29, 12/03/2022, Additional history exists Hemoglobin A1C 05/30/2025 11/30/2024, 05/28, 12/16/2023, Additional history exists Albumin Creatinine Ratio, Urine 06/15/2025 06/15/2024, 06/17/2023, 06/04/2022, Additional history exists Lipid Panel 06/15/2025 06/15/2024, 05/29, 06/04/2022, Additional history exists eGFR 06/15/2025 06/15/2024, 05/29, 06/04/2022, Additional history exists Influenza Vaccine (Season Ended) 2025 08/03/2019, 07/01/2018, 07/27/2017 Dilated Eye Exam 04/23/2026 04/23/2024, , 08/21/2021, Additional history exists Zoster Vaccine Completed 07/01/2018, 01/19/2018 Procedures Procedure Name Priority Date/Time Associated Diagnosis Comments POCT HEMOGLOBIN A1C Routine 11/30/2024 1 :02 PM [employer] Type 2 diabetes mellitus with hyperglycemia, with long-term current use of insulin (HCC) POCT GLUCOSE Routine 11/30/2024 1:01 PM [employer] Type 2 diabetes mellitus with hyperglycemia, with long-term current use of insulin (HCC) EGFR Routine 06/15/2024 1:59 PM CDT Type 2 diabetes mellitus with hyperglycemia, with long-term current use of insulin (HCC) Hypertension associated with diabetes (HCC) LIPID PANEL Routine 06/15/2024 1:59 PM CDT Type 2 diabetes mellitus with hyperglycemia, with long-term current use of insulin (HCC) Hyperlipidemia associated with type 2 diabetes mellitus (HCC) ALBUMIN CREATININE RATIO, URINE Routine 06/15/2024 1:59 PM CDT Type 2 diabetes mellitus with hyperglycemia, with long-term current use of insulin (HCC) HM DIABETES EYE EXAM Routine 04/23/2024 2:21 PM CDT from Last 3 Months or Most Recently Relevant to Health Maintenance Results * POCT hemoglobin A1c (11/30/2024 1:02 PM [employer]) Hemoglobin A1C, POC 9.3 4.0 - 5.6 % Blood 11/30/2024 1:02 PM [employer] Marci Acharya MD POINT OF CARE TEST ORDERABLES Final Result * POCT glucose (11/30/2024 1:01 PM [employer]) Glucose Blood, POC 395 mg/dL Blood 11/30/2024 1:01 PM [employer] Marci Acharya MD POINT OF CARE TEST ORDERABLES Final Result * eGFR (06/15/2024 1:59 PM CDT) eGFR 66 >=60 mL/min/1. 73 m2 Comment: Interpretive Data Reference Interval Normal >/= 90 mL/min/1.73m2 Mildly decreased* 60 - 89 mL/min/1.73m2 Mildly to moderately decreased 45 - 59 mL/min/1.73m2 Moderately to severely decreased 30 - 44 mL/min/1.73m2 Severely decreased 15 - 29 mL/min/1.73m2 Kidney Failure < 15 mL/min/1.73m2 *Relative to young adult level Estimated glomerular filtration rate is determined by the 2020 CKD-EPI equation recommended by the National Kidney Foundation (A Unifying Approach to GFR Estimation: Recommendations of the NKF-ASK Task Force on Reassessing the Inclusion of Race in Diagnosing Kidney Disease, JASN 2020). The CKD-EPI equation should not be used for patients with unstable renal function and has not been validated in children and those over 70. Current interpretive data was last reviewed 2021. Blood 06/15/2024 1:59 PM CDT 06/15/2024 7:48 PM CDT Angelia Monge TOP CUTTER LAB BLOOD ORDERABLES Sabine l Result Performing Organization Address [facility] de Phone Number MORGAN [address] [place], [place] [id number] * Albumin Creatinine Ratio, Urine (06/15/2024 1:59 PM CDT) Albumin Ur <12.0 mg/L Comment: Interpretive Data No reference range established. Current interpretive data was last revised 2019. Creatinine Ur 67.1 mg/dL [facility] Comment: Interpretive Data No reference range established. Current interpretive data was last revised 2019. Albumin Creatinine Ratio, Ur <18 1 - 29 mg/g [facility] Urine 06/15/2024 1:59 PM CDT 06/15/2024 7:47 PM CDT Angelia Monge TOP CUTTER LAB URINE ORDERABLES Sabine l Result Performing Organization Address [facility] de Phone Number [facility] [address] [place] [address] * (ABNORMAL) Lipid panel (06/15/2024 1:59 PM CDT) Cholesterol 107 30 - 199 mg/dL Comment: Interpretive Data Ages < or = 19 years Acceptable: <170 mg/dL Borderline high: 170-199 mg/dL High: >or= 200 mg/dL Ages > or = 20 years Desirable: <200 mg/dL Borderline high: 200-239 mg/dL High: >or= 240 mg/dL Literature References: 1. Expert Panel on Integrated Guidelines for Cardiovascular Health and Risk Reduction in Children and Adolescents. Pediatrics 2011;128:S213 2. NCEP Expert Panel. Circulation 2003;110:227 Current Interpretive Data was last revised on 2018. Triglycerides 142 <=149 mg/dL [facility] Comment: Interpretive Data Ages < or = 9 years Acceptable: <75 mg/dL Borderline high: 75-99 mg/dL High: >or= 100 mg/dL Ages 10 to 20 years Acceptable: <90 mg/dL Borderline high: 90-129 mg/dL High: >or= 130 mg/dL Ages > or = 20 years Desirable: <150 mg/dL Borderline high: 150-199 mg/dL High: 200-499 mg/dL Very high: >or= 499 mg/dL Literature References: 1. Expert Panel on Integrated Guidelines for Cardiovascular Health and Risk Reduction in Children and Adolescents. Pediatrics 2011;128:S213 2. NCEP Expert Panel. Circulation 2004;110:227 Current Interpretive Data was last revised on 2018. HDL 29(L) >=40 mg/dL [facility]ERSON Comment: Interpretive Data Ages < or = 19 years Acceptable: >45 mg/dL Borderline low: 40-45 mg/dL Low: <40 mg/dL Ages > or = 20 years Desirable: >or= 60 mg/dL Low: <40 mg/dL Literature References: 1. Expert Panel on Integrated Guidelines for Cardiovascular Health and Risk Reduction in Children and Adolescents. Pediatrics 2011;128:S213 2. NCEP Expert Panel. Circulation 2003;110:227 Current Interpretive Data was last revised on 2018. LDL, calculated 50 <=129 mg/dL [facility] Comment: Interpretive Data Ages < or = 19 years Acceptable: <110 mg/dL Borderline high: 110-129 mg/dL High: >or= 130 mg/dL Ages > or = 20 years Optimal: <100 mg/dL Near optimal: 100-129 mg/dL Borderline high: 130-159 mg/dL High: >160 mg/dL Literature References: 1. Expert Panel on Integrated Guidelines for Cardiovascular Health and Risk Reduction in Children and Adolescents. Pediatrics 2011;128:S213 2. NCEP Expert Panel. Circulation 2003;110:227 Current Interpretive Data was last revised on 2018. Non-HDL Cholesterol 78 mg/dL [facility] Comment: Interpretive Data Ages < or = 19 years Acceptable: <120 mg/dL Borderline high: 120-144 mg/dL High: >145 mg/dL Ages > or = 20 years When triglycerides are >200 mg/dL, Non-HDL cholesterol is a secondary target of therapy with treatment goals that are 30 mg/dL greater than the LDL cholesterol target. Literature References: 1. Expert Panel on Integrated Guidelines for Cardiovascular Health and Risk Reduction in Children and Adolescents. Pediatrics 2011;128:S213 2. NCEP Expert Panel. Circulation 2004;110:227 Current Interpretive Data was last revised on 2018. Chol/HDL ratio 4 [facility]ERSON Blood 06/15/2024 1:59 PM CDT 06/15/2024 7:47 PM CDT Angelia Monge NP LAB BLOOD ORDERABLES Sabine garza Result MORGAN [address] [address] Department [place] [address] * DIABETES EYE EXAM (04/23/2024 2:21 PM CDT) Historical Provider HEALTH MAINTENANCE Edited Result - Final from Last 3 Months or Most Recently Relevant to Health Maintenance Insurance [employer] MEDICARE GOLD AETNA MEDICARE T MEDICARE GOLD Care Teams Bolt Man Relationship Specialty Start Date End Date Javad Willoughby DO PCP - General Internal Medicine 06/15/24
--- OUTSIDE RECORDS SUMMARY | 2025-01-31 08:26 | XMS_ITS | Clinical Summary ---
Author Organization [facility] Address [address] [place] [address] Care Team Providers Care Substitute School Nurse Name Role Phone Unavailable Primary Care Provider Unavailabl e Social History Tobacco Use Types Packs/Day Years Used Date Smoking Tobacco: Never Assessed Sex and Gender Information Value Date Recorded Sex Assigned at Not on file Legal Sex Male 4:36 AM BODY MASKER Gender Identity Not on file Sexual Orientation Not on file Plan of Treatment Health Maintenance Due Date Last Done Comments DIABETES ANNUAL RETINAL EXAM 1962 DIABETES HBA1C Q 6 MONTHS 1962 DIABETES MICROALBUMIN ANNUAL SCREEN 1962 LDL CHOLESTEROL ANNUAL 1962 DTAP/TDAP/TD VACCINES (1 - Tdap) 1963 PNEUMOCOCCAL VACCINE 50+ YEARS (1 of 2 - PCV) 04/26/19 63 ZOSTER VACCINE (1 of 2) 1994 RSV VACCINE (60+ or ) (1 - 1-dose 75+ series) 2019 DIABETES ANNUAL FOOT EXAM 12/03/2023 12/03/2022 INFLUENZA VACCINE (#1) 2024 Insurance [facility] [address] [address] [place] [place] [id number]
--- OUTSIDE RECORDS SUMMARY | 2025-01-31 08:26 | XMS_ITS | Referral Summary ---
Author Organization [address] Address [address] [place] [id number] Care Team Providers Care Yarder Name Role Phone Javad Willoughby DO Primary Care Provider [phone] Encounters Date Type Department Care Team Description 01/18/[address] [phone] Marci Sadler MD Med Management 12/07/[address] [facility] Medical Group Diabetes and Endocrinology [address] [place] [phone] Marci Sadler MD Med Management ([place] pt assistance) 11/30/2024 1:00 PM QUALITY CONTROL TECH Office Visit [facility] Medical [facility] Diabetes and Endocrinology [address] [place] [phone] Marci Sadler MD Type 2 diabetes mellitus with hyperglycemia, with long-term current use of insulin (HCC) (Primary Dx); Hyperlipidemia associated with type 2 diabetes mellitus (HCC); Hypertension associated with diabetes (HCC); Overweight with body mass index (BMI) of 28 to 28.9 in adult from Last 3 Months Allergies Active Allergy Reactions Criticality Noted Date [...] hyperglycemia, with long-term current use of insulin ([facility]) Inject 0.5 mg under the skin once a week 9 mL 4 Active insulin degludec (TRESIBA) 200 unit/mL (3 mL) pen for injectionIndicat ions:Type 2 diabetes mellitus with hyperglycemia, with long-term current use of insulin ([facility]) Inject 0.1 mL (20 Units total) under the skin daily 9 mL 1 4 Active Farxiga 10 mg tabletIndication s:Type 2 diabetes mellitus with hyperglycemia, with long-term current use of insulin (HCC) Take 1 tablet (10 mg total) by mouth daily 90 tablet 3 4 Active ForgeRockuch Ultra Test stripIndications :Type 2 diabetes mellitus with hyperglycemia, without long-term current use of insulin (HCC) USE TO TEST 3 TIMES DAILY DX:E11.65 INSULIN DEPENDENT 100 strip 3 4 Active pen needle, diabetic (BD Lula 2nd Gen Pen Needle) 32 gauge x 5/32 needleIndication s:Type 2 diabetes mellitus with hyperglycemia, without long-term current use of insulin (HCC) USE 1 DAILY FOR INSULIN USE 100 [...] function Assessment & Plan (11/21/2020 4:23 PM QUALITY CONTROL TECH): Chronic , stable Assessment & Plan (07/21/2020 [...] exercise Assessment & Plan (11/21/2020 4:22 PM QUALITY CONTROL TECH): Chronic, uncharged Counseled on diet and exercise [...] infection. Assessment & Plan (12/17/2023 12:46 PM QUALITY CONTROL TECH): Chronic, overall fairly controlled for patient age [...] months Assessment & Plan (12/03/2022 1:45 PM QUALITY CONTROL TECH): Chronic, uncontrolled, worsening A1c 7.4 % C/w [...] scheduled Assessment & Plan (11/20/2021 2:21 PM QUALITY CONTROL TECH): Chronic, Uncontrolled, worsening HbA1c - 7.9 % [...] months Assessment & Plan (11/21/2020 4:22 PM QUALITY CONTROL TECH): Chronic, Improving with treatment HbA1c - 7.3 [...] ozempic pens, farxiga , as pt in [facility] - follow up in 6 week to see DEVOPS ENGINEER - Berenice Machado and in 3 months [...] . Assessment & Plan (10/21/2018 6:04 PM QUALITY CONTROL TECH): Diabetes is improving with treatment. A1c today [...] panel Will obtain labs from PCP and [facility] Diabetes will be reassessed in 6 months [...] panel Will obtain labs from PCP and [facility] Diabetes will be reassessed in 3 months. [...] results. Assessment & Plan (12/17/2023 12:45 PM QUALITY CONTROL TECH): Chronic, well controlled Continue current dose of amlodipine, lisinopril/hydrochlorothiazide Assessment & Plan (06/17/2023 1:20 PM CDT): Hypertension is chronic, well controlled . Continue current treatment regimen. Dietary sodium restriction. Weight loss. Regular aerobic exercise. Blood pressure will be reassessed at the next regular appointment. Assessment & Plan (12/03/2022 1:42 PM QUALITY CONTROL TECH): Hypertension is chronic, well controlled . Continue [...] appointment. Assessment & Plan (11/20/2021 1:56 PM QUALITY CONTROL TECH): Hypertension is chronic, well controlled . Continue [...] appointment. Assessment & Plan (11/21/2020 4:22 PM QUALITY CONTROL TECH): Hypertension is chronic, well controlled . Continue [...] appointment. Assessment & Plan (10/21/2018 6:04 PM QUALITY CONTROL TECH): Hypertension is improving with treatment. Continue current [...] Atorvastatin 20mg. Last lipid panel: 06/17/23 LDL=49, AS=841. Will update labs today. Does not mychart. Verified phone #/address to contact re: results. Assessment & Plan (12/17/2023 12:45 PM QUALITY CONTROL TECH): Continue current statin therapy Assessment & Plan (06/17/2023 1:21 PM CDT): - Pt. On Simvastatin 40 mg oral daily - advised low Fat/chol diet Recheck lipid panel today and further plans based on it Assessment & Plan (12/03/2022 1:42 PM QUALITY CONTROL TECH): - Pt. On Simvastatin 40 mg oral [...] diet Assessment & Plan (11/20/2021 1:56 PM QUALITY CONTROL TECH): - Pt. On Simvastatin 40 mg oral daily - advised low Fat/chol diet Assessment & Plan (07/17/2021 3:58 PM CDT): - Pt. On Simvastatin 40 mg oral daily - advised low Fat/chol diet Assessment & Plan (03/13/2021 10:23 PM CDT): - Pt. On Simvastatin 40 mg oral daily - advised low Fat/chol diet Assessment & Plan (11/21/2020 4:22 PM QUALITY CONTROL TECH): - Pt. On Simvastatin 40 mg oral [...] loss Assessment & Plan (10/21/2018 6:04 PM QUALITY CONTROL TECH): - Pt. On Simvastatin 40 mg oral [...] thy 04/09/2016 Pain of upper extremity 04/09/2016 Social History Tobacco Use Types Packs/Day Years [...] on file Legal Sex Male 1:20 AM QUALITY CONTROL TECH Gender Identity Not on file Sexual Orientation Not on file Last Filed Vital Signs Vital Sign Reading Time Taken Comments Blood Pressure 122/72 11/30/2024 12:59 PM QUALITY CONTROL TECH Pulse 70 11/30/2024 12:59 PM QUALITY CONTROL TECH Temperature - - Respiratory Rate 16 11/30/2024 12:59 PM QUALITY CONTROL TECH Oxygen Saturation - - Inhaled Oxygen Concentration - - Weight 93 kg (205 lb) 11/30/2024 12:59 PM QUALITY CONTROL TECH Height 177.8 cm (5' 10 ) 11/30/2024 12:59 PM QUALITY CONTROL TECH Body Mass Index 29.41 11/30/2024 12:59 PM QUALITY CONTROL TECH Plan of Treatment Not on file Procedures Procedure Name Priority Date/Time Associated Diagnosis Comments POCT HEMOGLOBIN A1C Routine 11/30/2024 1 :02 PM QUALITY CONTROL TECH Type 2 diabetes mellitus with hyperglycemia, with long-term current use of insulin (HCC) POCT GLUCOSE Routine 11/30/2024 1:01 PM QUALITY CONTROL TECH Type 2 diabetes mellitus with hyperglycemia, with [...] * POCT hemoglobin A1c (11/30/2024 1:02 PM QUALITY CONTROL TECH) [facility] Hemoglobin A1C, POC 9.3 4.0 - 5.6 % Blood 11/30/2024 1:02 PM QUALITY CONTROL TECH Marci Acharya MD POINT OF CARE TEST ORDERABLES Final Result * POCT glucose (11/30/2024 1:01 PM QUALITY CONTROL TECH) [facility] Glucose Blood, POC 395 mg/dL Blood 11/30/2024 1:01 PM QUALITY CONTROL TECH Marci Acharya MD POINT OF CARE TEST ORDERABLES Final Result * eGFR (06/15/2024 1:59 PM CDT) [facility] eGFR 66 >=60 mL/min/1. 73 m2 Comment: [...] 1:59 PM CDT 06/15/2024 7:48 PM CDT us Angeliaosvaldo Monge DEVOPS ENGINEER LAB BLOOD ORDERABLES Sabine l Result Performing Organization Address [facility] Co de Phone Number DONNASHYANNE [address] [place] [address] * Albumin Creatinine Ratio, Urine (06/15/2024 1:59 PM CDT) Albumin Ur <12.0 mg/L Comment: Interpretive Data No reference range established. Current interpretive data was last revised 2019. Creatinine Ur 67.1 mg/dL [facility] Comment: Interpretive Data No reference range established. Current interpretive data was last revised 2019. Albumin Creatinine Ratio, Ur <18 1 - 29 mg/g [facility] Urine 06/15/2024 1:59 PM CDT 06/15/2024 7:47 PM CDT us Angelia Monge DEVOPS ENGINEER LAB URINE ORDERABLES Sabine l Result Performing Organization Address City/[facility]/ZIP Co de Phone Number [facility] [address] [employer] [place], [place] [id number] * (ABNORMAL) Lipid panel (06/15/2024 1:59 PM [...] on 2018. Triglycerides 142 <=149 mg/dL [facility] Comment: Interpretive Data Ages < or = [...] on 2018. HDL 29(L) >=40 mg/dL [facility] Comment: Interpretive Data Ages < or = [...] 2018. LDL, calculated 50 <=129 mg/dL [facility] Comment: Interpretive Data Ages < or = [...] LAB BLOOD ORDERABLES Sabine garza Result [facility] [address] Department [place] [address] * DIABETES EYE EXAM (04/23/2024 2:21 PM CDT) Historical Provider HEALTH MAINTENANCE Edited Result - Final from Last 3 Months or Most Recently Relevant to Health Maintenance Insurance [employer] MEDICARE GOLD AET MEDICARE TNA MEDICARE GOLD Care Teams Yarder Relationship Specialty Start Date End Date Javad Willoughby DO PCP - General Internal Medicine 06/15/24
--- OUTSIDE RECORDS SUMMARY | 2025-01-31 08:26 | XMS_ITS | Encounter Summary ---
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 Social History Tobacco Use Types Packs/Day Years Used Date Smoking Tobacco: Never Assessed Sex and Gender Information Value Date Recorded Sex Assigned at Not on file Gender Identity Not on file Sexual Orientation Not on file documented as of this encounter Plan of Treatment Not on file documented as of this encounter Procedures Procedure Name Priority Date/Time Associated Diagnosis Comments DERMATOPATHOLOGY Routine 09/28/2024 12:0 0 AM SOLE FILLER 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 SKIN, right superior lateral neck: MELANOMA IN SITU, LENTIGINOUS TYPE (D03.4) NOT PRESENT AT MARGIN INTRADERMAL MELANOCYTIC NEVI, INCIDENTAL (D22.4) PRESENT AT MARGIN JUNCTIONAL MELANOCYTIC NEVUS, INCIDENTAL (D22.4) PRESENT AT MARGIN DERMAL SCAR (L90.5) 12:[address] [facility] DERMATOPATHOLOGY LABORATORY Clinical History Melanoma in situ. Check margins 12:[address] [facility] DERMATOPATHOLOGY LABORATORY Gross Description Specimen A: Received is one formalin filled container labeled with the patient's name and designated right superior lateral neck.The specimen consists of an ellipse measuring [id number] mm and is oriented with the notch at the 12 o'clock position labeled on the requisition as hash at 12. The 12 to 6 o'clock margin is inked green. The 6 o'clock to 12 o'clock margin is inked red. The 12 o'clock tip is submitted in cassette 1. The 6 o'clock tip is submitted in cassette 2. The remainder of the ellipse is serially sectioned and submitted in cassettes 3-6. Jar 0. 12:[address] [facility] DERMATOPATHOLOGY LABORATORY Microscopic Description Specimen A. SKIN, right superior lateral neck: There is a proliferation of melanocytes distributed in an irregular pattern along the dermal-epidermal junction with single cells predominating. Extension down the follicular epithelium and focal areas of confluence are present. This melanoma in situ is not present at the margin of the specimen. In blocks 1 and 4 there are nests of cytologically bland melanocytes within the dermis that mature with depth. This nevus is present at the 12 o'clock tip of the specimen. In block 2 there are nests of melanocytes at the dermal-epidermal junction. This nevus is present at the 6 o'clock tip of the specimen. There are fibroblasts and collagen bundles oriented parallel to the skin surface with elongated blood vessels, some of which are oriented perpendicular to the skin surface. 12:[address] [facility] DERMATOPATHOLOGY LABORATORY Disclaimer An external and internal positive and negative controls are appropriate for the histochemical, immunohistochemical and immunofluorescence stain(s) in this case (if any), except where stated explicitly. The performance characteristics of the stain(s) cited in this report were developed and its performance characteristic determined by the Dermatopathology Laboratory at [facility], directed by Dr. Mary Morgan. These tests need not be, and therefore are not, approved by the [place] Food and Drug Administration. The tests are used for clinical purposes. 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
--- OUTSIDE RECORDS SUMMARY | 2025-01-31 08:26 | XMS_ITS | Encounter Summary ---
Author Organization [employer] Address 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 [employer] DONY Ortiz, Nishant Adames MD [address] [facility] [address] [place] [address] Other Nonspecific Abnormal Cardiovascular System Function Study (Primary Dx) Social History Tobacco Use Types Packs/Day Years Used Date Smoking Tobacco: Never Assessed Sex and Gender Information Value Date Recorded Sex Assigned at Not on file 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 Gender Identity Not on file Sexual Orientation Not on file documented as of this encounter Plan of Treatment Not on file documented as of this encounter Procedures Procedure Name Priority Date/Time Associated Diagnosis Comments POC GLUCOSE Routine 07/23/2006 10:23 AM CDT documented in this encounter Results * (ABNORMAL) POC GLUCOSE (07/23/2006 10:23 AM CDT) COMMENT, GLU POC Notified RN INTERFACE SYSTEM GLUCOSE POC 116(H) 65 - 109 mg/dL INTERFACE SYSTEM 07/23/2006 10:2 3 AM CDT us Nishant Ortiz MD POINT OF CARE TESTING Fin al Result INTERFACE SYSTEM Refer to clinic/hospital department documented in this encounter Visit Diagnoses Diagnosis Other nonspecific abnormal cardiovascular system function study- Primary documented in this encounter
[2025-01-31 08:30] LABS: Basophils Absolute Auto 0.1 K/mm3 (0.0-0.1); Basophils Percent Auto 1.3 % (0.2-1.2); Eosinophils Absolute Auto 0.2 K/mm3 (0-0.3); Eosinophils Percent Auto 1.9 % (0-4.4); Hematocrit 42.6 % (42.0-52.0); Hemoglobin 13.7 g/dL (14.0-18.0); Immature Granulocyte Absolute 0.03 K/mm3 (0.00-0.031); Immature Granulocyte Percent A 0.3 % (0-0.5); Lymphocytes Absolute Auto 3.37 K/mm3 (0.9-3.2); Lymphocytes Percent Auto 36.5 % (18.3-44.2); Mean Corpuscular HGB Conc 32.2 g/dl (32-36); Mean Corpuscular Hemoglobin 26.6 pg (26-34); Mean Corpuscular Volume 82.6 fl (80-100); Mean Platelet Volume 11.7 fl (7.4-10.4); Monocytes Absolute Auto 0.8 K/mm3 (0.1-0.6); Monocytes Percent Auto 8.1 % (2.6-8.5); Neutrophils Absolute Auto 4.8 K/mm3 (1.3-6.7); Neutrophils Percent Auto 51.9 % (45.5-73.1); Platelet Count Result 244 k/mm3 (150-375); Red Blood Count 5.16 M/mm3 (4.6-6.20); White Blood Count 9.2 K/mm3 (4.5-10.0)
[2025-01-31 08:39] LABS: Estimated CRCL calculation 37 ml/min
--- NOTE | 2025-01-31 08:43 | ED.CHESTPAIN ---
HPI - Chest Pain General Chief Complaint: Chest Pain Stated Complaint: cp Time Seen by Provider: 01/31/25 08:08 History of Present Illness HPI narrative: Patient is an 79-year-old male who presents ER with chest pain. Pressure since 01/29/2025. Constant. No radiation. Associated with dizziness when he stands up and exertional dyspnea and fatigue. Denies history of [place]. Sees Dr. Louis. No lower extremity swelling. He took his morning medicines which include amlodipine 10 mg. Patient bradycardic on arrival. Related Data Home Medications ?Medication ?Instructions ?Recorded ?Confirmed ?Last Taken ?Type aspirin 81 mg tablet,delayed 81 mg PO DAILY 02/15/20 01/02/25 Unknown History release (Adult Low Dose Aspirin) multivitamin (Daily Multi-Vitamin 1 tablet PO DAILY 02/15/20 01/02/25 Unknown History tablet) semaglutide 0.25 mg or 0.5 mg (2 0.5 mg subcut WEEKLY 08/16/20 01/02/25 Unknown History mg/1.5 mL) subcutaneous pen injector (Ozempic) dapagliflozin propanediol 10 mg 10 mg PO QAM 02/13/22 01/02/25 Unknown History tablet (Farxiga) insulin degludec 100 unit/mL (3 20 unit subcut QHS 03/12/23 01/02/25 Unknown History mL) subcutaneous pen (Tresiba FlexTouch U-100 insulin) glipizide 10 mg tablet, extended 10 mg PO DAILY 01/02/25 01/02/25 Unknown History release 24 hr Allergies Allergy/AdvReac Type Severity Reaction Status Date / Time pentazocine Allergy Unknown Hives Verified 01/31/25 10:12 Review of Systems Review of Systems: All systems reviewed & are unremarkable except as noted in HPI and below Constitutional: Constitutional: Reports no additional constitutional complaints ENT: Reports system reviewed and no additional complaints, except as documented Cardiovascular: Cardiovascular: Reports no additional cardiovascular complaints Respiratory: Respiratory: Reports no additional respiratory complaints Neurologic: Reports system reviewed and no additional complaints, except as documented [facility] Past Medical History Medical History (HFpEF) heart failure with preserved ejection fraction Malignant melanoma Type 2 diabetes mellitus with chronic kidney disease, with long-term current use of insulin History of diverticulitis Chronic kidney disease due to diabetes mellitus Diabetes mellitus with insulin therapy Wrist fracture JASON (obstructive sleep apnea) Diastasis recti Type 2 diabetes mellitus without complication, without long-term current use of insulin Insomnia Hypertriglyceridemia Essential hypertension Hemangioma Surgical History Surgical History History of back surgery x 3 History of repair of hiatal hernia Family History Family History Sibling Family history of malignant neoplasm of breast in first degree relative Family history of lung cancer Mother Patient's mother is Father Patient's father is Other Diabetes mellitus Family history of cardiovascular disease Family history of elevated blood lipids Hypertension Social History Social History Smoking packs per day: 2 Smoking cigarettes per day: 40.0 Years smoked: 7 Smoking pack-years: 14.00 Smoking status: Former smoker Tobacco type: cigarettes Smoking end date: 10/28/95 Alcohol intake: current Substance use: never Do You Feel Safe in your Home?: No Lack of Transportation: No Lack of Food: Never True Current Housing: I Have Housing Concerned About Future Housing: No Difficulty Paying Gas/Electric Bills: No Difficulty Paying for Meds: No Currently Unemployed: No Education: Associate Degree Difficulty w/ Childcare or Family Care: No Living arrangements: with family Gender identity (if verbalized by the patient): Male Spiritual care concerns: No Exam Narrative: GENERAL: Well-appearing, well-nourished, and in no acute distress. HEAD: Normocephalic, atraumatic. ENT: Mucous membranes moist. NECK: Supple. CHEST: Clear to auscultation. No respiratory distress. HEART: Bradycardic and regular. Normal peripheral pulses. ABDOMEN: Soft, nontender, nondistended. EXTREMITIES: Normal range of motion. No edema. SKIN: Warm, dry, no rash. NEURO: Alert and oriented x3. PSYCH: Normal mood and affect. Course Course Emergency Course: First EKG shows Mobitz type 2 heart block. Patient accepted for transfer to [place] by Dr. Marques. Patient main stable in ER. Repeat EKG shows complete heart block and [facility] updated. Patient remains stable and there is a bed available so patient was transferred by ambulance. Vital Signs Vital signs: Vital Signs Temperature 97.6 F 01/31/25 08:02 Pulse Rate 34 L 01/31/25 08:02 Respiratory Rate 22 H 01/31/25 08:02 Blood Pressure 144/66 H 01/31/25 08:02 Pulse Oximetry 100 01/31/25 08:02 Temperature 97.6 F 01/31/25 08:02 Pulse Rate 31 L 01/31/25 15:29 Respiratory Rate 20 01/31/25 15:29 Blood Pressure 117/52 L 01/31/25 15:01 Pulse Oximetry 98 01/31/25 15:29 Oxygen Delivery Room Air 01/31/25 08:21 MDM - Chest Pain Lab Data 01/31/25 08:23 01/31/25 08:23 Labs: Lab Results 01/31/25 01/31/25 01/31/25 Range/Units 08:23 11:01 14:05 WBC 9.2 (4.5-10.0) K/mm3 RBC 5.16 (4.6-6.20) M/mm3 Hgb 13.7 L (14.0-18.0) g/dL Hct 42.6 (42.0-52.0) % MCV 82.6 (80-100) fl MCH 26.6 (26-34) pg MCHC 32.2 (32-36) g/dl RDW 15.0 H (11.5-14.5) % Plt Count 244 (150-375) k/mm3 MPV 11.7 H (7.4-10.4) fl Immature Gran % (Auto) 0.3 (0-0.5) % Neut % (Auto) 51.9 (45.5-73.1) % Lymph % (Auto) 36.5 (18.3-44.2) % [place] % (Auto) 8.1 (2.6-8.5) % Eos % (Auto) 1.9 (0-4.4) % Baso % (Auto) 1.3 H (0.2-1.2) % Lymph # (Auto) 3.37 H (0.9-3.2) K/mm3 [place] # (Auto) 0.8 H (0.1-0.6) K/mm3 Eos # (Auto) 0.2 (0-0.3) K/mm3 Baso # (Auto) 0.1 (0.0-0.1) K/mm3 Abs Immat Gran (auto) 0.03 (0.00-0.031) K/mm3 Absolute Neuts (auto) 4.8 (1.3-6.7) K/mm3 Absolute Nucleated RBC 0.000 (0.0-0.012) K/mm3 Nucleated RBC % 0.0 (0.0-0.2) % PT 14.0 (11.1-14.7) Seconds INR 1.1 APTT 27.2 (22.3-36.8) Seconds Sodium 136 L (137-145) mmol/L Potassium 3.9 (3.4-5.0) mmol/L Chloride 99 (98-107) mmol/L Carbon Dioxide 21 L (22-30) mmol/L Anion Gap 16 H (4-12) mmol/L BUN 28 H D (9-20) mg/dL Creatinine 1.49 H (0.7-1.3) mg/dL Estim Creat Clear Calc 37 ml/min Estimated GFR 45 L (59 - ) Glucose 173 H (65-110) mg/dL Calcium 9.3 (8.4-10.2) mg/dL Total Bilirubin 1.0 (0.2-1.3) mg/dL AST 23 (17-59) U/L ALT 23 (6-50) U/L Alkaline Phosphatase 122 (38-126) U/L Troponin I 0.082 H* 0.072 H* 0.085 H* (0.000-0.034) ng/mL NT-Pro-B Natriuret Pep 3290 H (19.9-100) pg/mL Total Protein 8.0 (6.3-8.2) g/dL Albumin 4.5 (3.5-5.1) g/dL Lipase 195 (23-300) U/L ECG Data EKG #1: ECG completion date: 01/31/25 ECG completion time: 08:17 EKG Interpretation: bradycardia (33), widened QRS, normal QT and other (Mobitz type 2 heart block) Critical Care Time Critical Care Time Critical Care Time: Yes Total Critical Care Time: 35 Discharge Plan Discharge Clinical Impression: Complete heart block, Symptomatic bradycardia Patient Disposition: Acute Care Hospital Condition: Serious Patient Language: Finnish Prescriptions: No Action glipizide 10 mg tablet extended release 24hr 10 mg PO DAILY insulin degludec [Tresiba FlexTouch U-100] 100 unit/mL (3 mL) insulin pen 20 unit subcut QHS aspirin [Adult Low Dose Aspirin] 81 mg tablet,delayed release (DR/EC) 81 mg PO DAILY multivitamin [Daily Multi-Vitamin] Tablet 1 tablet PO DAILY Ozempic 0.25 mg or 0.5 mg(2 mg/1.5 mL) pen injector 0.5 mg SUB-Q WEEKLY Farxiga 10 mg tablet 10 mg PO QAM atorvastatin 20 mg tablet 20 mg PO DAILY Qty: 90 1RF lisinopril-hydrochlorothiazide 20-12.5 mg tablet See Rx Instructions .ROUTE .COMPLEX Qty: 90 3RF Dose Instruction: TAKE 1 TABLET BY MOUTH EVERY DAY Rx Instructions: TAKE 1 TABLET BY MOUTH EVERY DAY fluticasone propionate 50 mcg/actuation spray,suspension See Rx Instructions .ROUTE .COMPLEX Qty: 48 0RF Dose Instruction: 1 SPRAY INTRANASALLY EVERY 12 HOURS ADMINISTER INTO EACH NOSTRIL Rx Instructions: 1 SPRAY INTRANASALLY EVERY 12 HOURS ADMINISTER INTO EACH NOSTRIL amlodipine 10 mg tablet See Rx Instructions .ROUTE .COMPLEX Qty: 90 1RF Dose Instruction: TAKE 1 TABLET BY MOUTH ONCE DAILY Rx Instructions: TAKE 1 TABLET BY MOUTH ONCE DAILY Follow-up/Referrals: Javad Willoughby, [Primary Care Provider] -
[2025-01-31 08:54] LABS: INR 1.1; Partial Thromboplastin Time 27.2 Seconds (22.3-36.8)
[2025-01-31] MEDS: GLUCAGON FOR INJ 1 MG VIAL IV PUSH (08:55)
[2025-01-31 09:05] LABS: Alanine Aminotransferase 23 U/L (6-50); Albumin Level 4.5 g/dL (3.5-5.1); Alkaline Phosphatase 122 U/L (38-126); Anion Gap 16 mmol/L (4-12); Aspartate Amino Transferase 23 U/L (17-59); Blood Urea Nitrogen 28 mg/dL (9-20); Calcium 9.3 mg/dL (8.4-10.2); Carbon Dioxide 21 mmol/L (22-30); Chloride 99 mmol/L (98-107); Estimated Glomerular Filt Rate 45; Glucose 173 mg/dL (65-110); Lipase 195 U/L (23-300); Potassium 3.9 mmol/L (3.4-5.0); Sodium 136 mmol/L (137-145)
[2025-01-31 09:26] LABS: Troponin I 0.082 ng/mL (0.000-0.034)
[2025-01-31 09:54] LABS: NT Pro B Type Natriuretic Pept 3290 pg/mL (19.9-100)
--- NOTE | 2025-01-31 10:15 | PC.NURSE ---
accepted by Dr Jerald Doe high priority transfer
--- NOTE | 2025-01-31 10:55 | ECG_ITS ---
Test Date: 2025-01-31 11:06:43 Measurements Intervals [place] Rate: 33 P: 0 AK: 0 QRS: -29 QRSD: 159 T: 141 QT: 533 QTc: 395 Interpretive Statements SINUS RHYTHM WITH SLOW VENTRICULAR RESPONSE WITH SECOND DEGREE AV BLOCK, TYPE II (MOBITZ II), LEFT BUNDLE BRANCH BLOCK BASELINE ARTIFACT- I, II, III, AVR, AVL, AVF, V1-V6 Compared to ECG 01/31/2025 08:17:29 NO SIGNIFICANT CHANGE Electronically Signed On 01-31-2025 12:13:09 CDT by Darron Louis D.O.
[2025-01-31 11:35] LABS: Troponin I 0.072 ng/mL (0.000-0.034)
--- NOTE | 2025-01-31 13:51 | ECG_ITS ---
Test Date: 2025-01-31 14:00:28 Measurements Intervals [place] Rate: 31 P: 0 ME: 0 QRS: -32 QRSD: 162 T: 153 QT: 545 QTc: 397 Interpretive Statements SINUS RHYTHM WITH SLOW VENTRICULAR RESPONSE WITH SECOND DEGREE AV BLOCK, TYPE II (MOBITZ II) LEFT AXIS DEVIATION LEFT BUNDLE BRANCH BLOCK BASELINE ARTIFACT- I, II, III, AVR, AVL, AVF, V4-V6 ABNORMAL ECG Compared to ECG 01/31/2025 11:06:43 NO SIGNIFICANT CHANGE Electronically Signed On 01-31-2025 16:46:31 CDT by Darron Louis D.O.
[2025-01-31 14:38] LABS: Troponin I 0.085 ng/mL (0.000-0.034)
--- NOTE | 2025-01-31 15:04 | PC.NURSE ---
called report at 1450 to SAMUEL Hannah. all questions answered.
== END 2025-01-31 15:31 | disposition short-term general hospital (02) ==
LOC: ANHED 08:24
PROVIDERS: Emergency Provider Emergency Medicine; PCP Internal Medicine
DX: I44.2 Atrioventricular block, complete (principal); R00.1 Bradycardia, unspecified; Z79.82 Long term (current) use of aspirin; Z79.4 Long term (current) use of insulin; E11.22 Type 2 diabetes mellitus with diabetic chronic kidney disease; N18.9 Chronic kidney disease, unspecified; I12.9 Hypertensive chronic kidney disease with stage 1 through stage 4 chronic kidney disease, or unspecified chronic kidney disease; Z85.820 Personal history of malignant melanoma of skin; Z87.891 Personal history of nicotine dependence
CPT/HCPCS: 36415; 71046; 80053; 83690; 83880; 84484; 85025; 85610; 85730; 93005; 96374; 99285; J1610

== ENCOUNTER 2025-05-31 10:03 | Emergency (ER) | payer MEDICARE, SELFPAY ==
--- NOTE | ~2025-05-31 | XR_ITS ---
XR knee RT min 4V 05/31/2025 10:55 Indication: Status post fall. Knee pain. Procedure: 4 views right knee Comparison: No prior studies for comparison. Findings: No fracture, subluxation or dislocation. Moderate arthritis of the right knee. There is cho ndrocalcinosis. Moderate joint effusion. Impression: 1: Moderate tricompartment osteoarthritis of the right knee. 2: Moderate joint effusion. 3: Chondrocalcinosis. Reviewed, dictated and finalized at location A. Impression: 1: Moderate tricompartment osteoarthritis of the right knee. 2: Moderate joint effusion. 3: Chondrocalcinosis.
--- NOTE | ~2025-05-31 | XR_ITS ---
XR knee LT min 4V 05/31/2025 10:55 Indication: Left knee pain and swelling Procedure: 4 views left knee Comparison: 05/08/2006 Findings: There is moderate tricompartment osteoarthritis. Chondrocalcinosis. Moderate joint effusion . No acute fracture or traumatic malalignment. Impression: 1: Moderate tricompartment osteoarthritis with moderate joint effusion. Reviewed, dictated and finalized at location A. Impression: 1: Moderate tricompartment osteoarthritis with moderate joint effusion.
--- NOTE | 2025-05-31 10:05 | ED.FALL ---
HPI - Fall General Chief Complaint: Fall Stated Complaint: fall Time Seen by Provider: 05/31/25 10:04 Source: patient Mode of arrival: ambulatory Limitations: no limitations History of Present Illness HPI Narrative: Dino is a 80 year old male patient presenting to the clinic today with c/o falling down a hill yesterday afternoon. He reports he injured his bilateral knees during the fall. Has an abrasion to the left anterior knee and bilateral knee swelling. Has applied ice. Is using a wheeled walker. Denies hitting his head, neck pain, back pain, or hip pain. Related Data Home Medications ?Medication ?Instructions ?Recorded ?Confirmed ?Last Taken ?Type aspirin 81 mg tablet,delayed 81 mg PO DAILY 02/15/20 04/22/25 Unknown History release (Adult Low Dose Aspirin) multivitamin (Daily Multi-Vitamin 1 tablet PO DAILY 02/15/20 04/22/25 Unknown History tablet) dapagliflozin propanediol 10 mg 10 mg PO QAM 02/13/22 04/22/25 Unknown History tablet (Farxiga) insulin degludec 100 unit/mL (3 20 unit subcut QHS 03/12/23 04/22/25 Unknown History mL) subcutaneous pen (Tresiba FlexTouch U-100 insulin) semaglutide 0.25 mg or 0.5 mg (2 1 mg subcut WEEKLY 04/22/25 04/22/25 Unknown History mg/1.5 mL) subcutaneous pen injector (Ozempic) Allergies Allergy/AdvReac Type Severity Reaction Status Date / Time pentazocine Allergy Unknown Hives Verified 05/31/25 10:26 Review of Systems Review of Systems: Pertinent positives per HPI. Patient denies any fever, chills, rash, headache, visual changes, dizziness, cough, runny nose, sore throat, shortness of breath, chest pain, palpitations, nausea, vomiting, diarrhea, constipation, abdominal pain, or any urinary issues. [facility] Past Medical History Medical History CKD (chronic kidney disease) stage 3, GFR 30-59 ml/min (HFpEF) heart failure with preserved ejection fraction Malignant melanoma Type 2 diabetes mellitus with chronic kidney disease, with long-term current use of insulin History of diverticulitis Chronic kidney disease due to diabetes mellitus Diabetes mellitus with insulin therapy Wrist fracture JASON (obstructive sleep apnea) Diastasis recti Type 2 diabetes mellitus without complication, without long-term current use of insulin Insomnia Hypertriglyceridemia Essential hypertension Hemangioma Surgical History Surgical History History of back surgery x 3 History of repair of hiatal hernia Family History Family History Sibling Family history of malignant neoplasm of breast in first degree relative Family history of lung cancer Mother Patient's mother is Father Patient's father is Other Diabetes mellitus Family history of cardiovascular disease Family history of elevated blood lipids Hypertension Social History Social History Smoking packs per day: 2 Smoking cigarettes per day: 40.0 Years smoked: 7 Smoking pack-years: 14.00 Smoking status: Former smoker (quit 35 years ago ) Tobacco type: cigarettes Smoking end date: 10/28/95 Alcohol intake: current Substance use: never Do You Feel Safe in your Home?: No Lack of Transportation: No Lack of Food: Never True Current Housing: I Have Housing Concerned About Future Housing: No Difficulty Paying Gas/Electric Bills: No Difficulty Paying for Meds: No Currently Unemployed: No Education: Associate Degree Difficulty w/ Childcare or Family Care: No Living arrangements: with family Gender identity (if verbalized by the patient): Male Spiritual care concerns: No Comments At the time of my signature, I reviewed and agree with the nursing past medical, surgical, social, and family history. There is no relevant family history pertinent to the patient complaint. Exam Narrative: General: Well-developed, well nourished, in no apparent distress Head: Normocephalic, atraumatic. Cardio: Regular rate and rhythm, s1 and s2 normal, no murmur appreciated. Resp: Clear to auscultation bilaterally, no rhonchi, rales, wheezing or rubs. Musculoskeletal: No deformity, swelling to bilateral knees left greater than right, small 0.5cm abrasion to the left anterior knee, tender to palpation over bilateral anterior knee, limited ROM due to pain swelling, muscle strength strong and equal, peripheral pulse strong, no edema, no cyanosis, walking with wheeled walker. Course Course Emergency Course: Portions of this record may have been created with voice recognition software. Level of Care: Express Care Visit Vital Signs Vital signs: Vital Signs Temperature 36.7 C 05/31/25 10:22 Pulse Rate 74 05/31/25 10:22 Respiratory Rate 18 05/31/25 10:22 Blood Pressure 135/55 L 05/31/25 10:22 Pulse Oximetry 100 05/31/25 10:22 Oxygen Delivery Room Air 05/31/25 10:22 Temperature 36.7 C 05/31/25 10:22 Pulse Rate 74 05/31/25 10:22 Respiratory Rate 18 05/31/25 10:22 Blood Pressure 135/55 L 05/31/25 10:22 Pulse Oximetry 100 05/31/25 10:22 Oxygen Delivery Room Air 05/31/25 10:22 Vital signs reviewed MDM - Fall MDM Narrative Medical decision making narrative: At the time of visit patient is resting comfortably on the exam table. Patient appears to be nontoxic. C/o falling down a hill yesterday afternoon. He reports he injured his bilateral knees during the fall. Has an abrasion to the left anterior knee and bilateral knee swelling. Has applied ice. Is using a wheeled walker. Denies hitting his head, LOC, neck pain, back pain, or hip pain. X-ray bilateral knee ordered. Tdap ordered. Medications: Tdap 0.5 mL IM given in the clinic today Diagnostics: Bilateral knee x-ray negative for any fracture or malalignment. Does show osteoarthritis and moderate knee joint effusion. Plan: I suspect patient has acute knee pain, bilateral knee joint effusion, and osteoarthritis. Rest, ice, compress, and elevate, use wheeled walker in bear weight gradually. Recommend follow-up with orthopedic provider for further evaluation to determine need for MRI. Supportive measures were discussed with the patient and they voiced understanding discharge instructions and agrees to treatment plan. Return precautions reviewed Differential Diagnosis Differential diagnosis: Likely other (bilateral knee contusion, abrasion, tibia plateau fracture, patellar fracture, distal femur fracture, acute inter derangement of the knee, meniscus tear, knee sprain) Discharge Plan Discharge Clinical Impression: Acute knee pain, Osteoarthritis, Effusion of both knee joints, Fall Patient Disposition: Home Condition: Stable Instructions: Antibiotic Form, Osteoarthritis (ED), Fall Prevention for Older Adults (ED), Swollen Knee Joint (ED), Knee Pain (ED) Additional Instructions: Bilateral knee x-rays are negative for any sign of fracture or malalignment. Does show a moderate joint effusion to bilateral knees as well as osteoarthritis. Tdap was given in the clinic today. Used wheeled walker Rest, ice, elevate, and wear kassidy wrap as directed Tylenol/motrin for pain as discussed. Gradually bear weight Follow up with your PCP if symptoms persist more than 1 week. Follow up with Dr. Morrison-business integration manager ortho or you may follow up with another ortho provider of your choosing. May need further imaging to rule out ligament injury or meniscus tear Patient Language: [place] Prescriptions: No Action insulin degludec [Tresiba FlexTouch U-100] 100 unit/mL (3 mL) insulin pen 20 unit subcut QHS aspirin [Adult Low Dose Aspirin] 81 mg tablet,delayed release (DR/EC) 81 mg PO DAILY multivitamin [Daily Multi-Vitamin] Tablet 1 tablet PO DAILY Ozempic 0.25 mg or 0.5 mg(2 mg/1.5 mL) pen injector 1 mg SUB-Q WEEKLY Farxiga 10 mg tablet 10 mg PO QAM fluticasone propionate 50 mcg/actuation spray,suspension See Rx Instructions .ROUTE .COMPLEX Qty: 48 0RF Dose Instruction: 1 SPRAY INTRANASALLY EVERY 12 HOURS ADMINISTER INTO EACH NOSTRIL Rx Instructions: 1 SPRAY INTRANASALLY EVERY 12 HOURS ADMINISTER INTO EACH NOSTRIL atorvastatin 20 mg tablet 20 mg PO DAILY Qty: 90 1RF amlodipine 10 mg tablet See Rx Instructions .ROUTE .COMPLEX Qty: 90 1RF Dose Instruction: TAKE 1 TABLET BY MOUTH ONCE DAILY Rx Instructions: TAKE 1/2 TABLET BY MOUTH ONCE DAILY lisinopril-hydrochlorothiazide 20-12.5 mg tablet See Rx Instructions .ROUTE .COMPLEX Qty: 90 3RF Dose Instruction: TAKE 1 TABLET BY MOUTH EVERY DAY Rx Instructions: TAKE 1 TABLET BY MOUTH EVERY DAY Follow-up/Referrals: Ralph Morrison MD [Physician] - 1 Day (Acute knee pain with bilateral joint [id number] out acute internal derangement of knee joints) Shayy Dubose DO [Primary Care Provider] - Time of Disposition: 11:27 Quality NIHSS Nursing Documentation ED NIHSS nursing documentation: reviewed/agree
[2025-05-31 10:22] VITALS: BP 135/55; PULSE 74; RESP 18; TEMP 36.7; O2SAT 100
[2025-05-31] MEDS: TETANUS,DIPHTHERIA,AC PERTUSSIS ADULT (0.5 ML) BOOSTRIX IM (11:04)
== END 2025-05-31 11:33 | disposition home or self-care (01) ==
PROVIDERS: Emergency Provider Nurse Practitioner Family; PCP Family Medicine
DX: M25.562 Pain in left knee (principal); M25.561 Pain in right knee; M17.0 Bilateral primary osteoarthritis of knee; M25.462 Effusion, left knee; M25.461 Effusion, right knee; W17.81XA Fall down embankment (hill), initial encounter; Z23 Encounter for immunization; Z87.891 Personal history of nicotine dependence; I13.0 Hypertensive heart and chronic kidney disease with heart failure and stage 1 through stage 4 chronic kidney disease, or unspecified chronic kidney disease; E11.22 Type 2 diabetes mellitus with diabetic chronic kidney disease; N18.30 Chronic kidney disease, stage 3 unspecified; I50.9 Heart failure, unspecified; Z79.4 Long term (current) use of insulin; E78.1 Pure hyperglyceridemia
CPT/HCPCS: 73564; 90471; 90715; 99214; G0463